=== PATIENT | male | born 1955 | race Caucasian/White ===

== ENCOUNTER 2023-03-02 09:30 | Outpatient (CLI) | payer BC, SELFPAY | END 2023-03-02 09:31 | disposition home or self-care (01) | LOC: NFLDREF 03-03 03:39 | PROVIDERS: PCP Family Medicine; Referring Provider Family Medicine; Visit Provider Family Medicine | DX: G47.00 Insomnia, unspecified (principal); I10 Essential (primary) hypertension; K76.0 Fatty (change of) liver, not elsewhere classified; M62.81 Muscle weakness (generalized); E66.01 Morbid (severe) obesity due to excess calories | CPT/HCPCS: 80053; 80061; 82043; 82570 ==

== ENCOUNTER 2023-08-29 11:20 | Outpatient (CLI) | payer BC, SELFPAY | END 2023-08-29 11:21 | disposition home or self-care (01) | PROVIDERS: PCP Family Medicine; Visit Provider Family Medicine | DX: I10 Essential (primary) hypertension (principal); Z13.6 Encounter for screening for cardiovascular disorders; Z12.5 Encounter for screening for malignant neoplasm of prostate | CPT/HCPCS: 80053; 80061; 82043; 82570; 84153 ==

== ENCOUNTER 2024-07-07 10:47 | Outpatient (CLI) | payer MEDICARE, SELFPAY | END 2024-07-07 10:48 | disposition home or self-care (01) | LOC: NFLDREF 07-08 09:50 | PROVIDERS: PCP Physician Assistant Medical; Referring Provider Physician Assistant Medical; Visit Provider Physician Assistant Medical | DX: N40.0 Benign prostatic hyperplasia without lower urinary tract symptoms (principal); I10 Essential (primary) hypertension; K76.0 Fatty (change of) liver, not elsewhere classified; Z12.5 Encounter for screening for malignant neoplasm of prostate; Z13.29 Encounter for screening for other suspected endocrine disorder | CPT/HCPCS: 80053; 80061; 84443; G0103 ==

== ENCOUNTER 2024-10-01 09:42 | Outpatient (CLI) | payer MEDICARE, OTHER, SELFPAY ==
--- OUTSIDE RECORDS SUMMARY | 2024-10-01 09:47 | XMS_ITS | Clinical Summary ---
Author Organization [facility] Address [address] [place] [address] Care Team Providers Care Dispensing Audiologist Name Role Phone Praveena Shin MD Unavailable David Galicia MD Unavailable Allergies Active Allergy Reactions Criticality Noted Date Comments Amoxicillin 10/07/2020 Naproxen 04/06/2004 hives from large dose Medications omeprazole 20 MG tabletIndication s:Gastroesophage al reflux disease without esophagitis Take 1 tablet (20 mg) by mouth daily Take 30-60 minutes before a meal. 90 tablet 2 6 Active hydrocortisone 2.5 % creamIndications :Rash of groin Apply topically 2 times daily 60 g 3 2 Active traZODone (DESYREL) 100 MG tabletIndication s:Sleep disorder Take 1 tablet (100 mg) by mouth At Bedtime 90 tablet 1 2 Active ketoconazole (NIZORAL) 2 % external cream 1 APPLICATION EXTERNALLY TO GROIN AREAS 1 TIME A DAY 2 Active triamcinolone (KENALOG) 0.025 % cream APPLY TO GROIN AREAS TWICE DAILY FOR 3-10 DAYS THEN NEEDED 2 Active lisinopril (ZESTRIL) 10 MG tabletIndication s:Benign essential hypertension TAKE ONE TABLET BY MOUTH ONE TIME DAILY 90 tablet 3 Active Active Problems Problem Noted Date Diagnosed Date Muscle fatigue 10/04/2022 Muscle cramps 02/07/2022 Overview (10/04/2022): 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 Provider to review and confirm Family history of malignant neoplasm of prostate Overview (02/07/2022): Father at age 60. Anal spasm Overview (06/28/2007): chronic anal leakage; noted per GI via colonsocopy in 2003 Resolved Problems Problem Noted Date Diagnosed Date Resolved Date Cervical radiculopathy 04/25/202109/14 Hip pain, right 02/11/2021 06/20/2021 Esophageal reflux 01/28/2014 11/17/2021 Mild major depression 09/11/20112021 Low back pain 09/24/2010 10/17/2010 Overview (09/20/2015): Diagnosis updated by automated process. Provider to review and confirm. CARDIOVASCULAR SCREENING; LD L GOAL LESS THAN 160 09/18/2010 11/17/2021 Malaise and fatigue 06/28/2007 02/08/20 22 Overview (08/19/2015): Problem list name updated by automated process. 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 02/07/2022 Family history of malignant neoplasm of gastrointestinal tract 02/07/2022 Encounters Date Type Department Care Team Description 07/08/2024 MyC Medical Advice [address] [address] Jaqueline Aguilar CMA Outreach (Visit due ) 07/07/2024 Medical Correspondence [facility] [address] [place] [address] Scan, Non-Provider from Last 3 Months Immunizations Name Administration Dates Next Due COVID-19 MONOVALENT 12+ (Pfizer) 03/11/2021,04/0 12/2020 Influenza (IIV3) PF 08/26/2013, 2,09/11/2011, 009 Influenza Vaccine (Flucelvax Quadrivalent) 08/25/2021 Influenza Vaccine 18-64 (Flublok) 08/19/2020,,09/11/2018 Influenza Vaccine >6 months,quad, PF 08/24/2016, 09/08/2015 Influenza,INJ,MDCK,PF,Quad >6mo(Flucelvax) 08/09/2022 Pneumo Conj 13-V (2010&after) 09/05/2019 TDAP Vaccine (Adacel) 03/01/2018,06/28/2007 Family History Medical History Relation Comments C.A.D. Father A-fib Hypertension Father Prostate Cancer Father Cancer - colorectal Paternal Grandmother Colon Cancer Paternal Grandmother Diabetes No family hx of Hypertension No family hx of Relation Status Comments Brother 1 Alive x3 Brother 2 Alive Brother 3 Daughter 1 Alive Julia Daughter 2 Alive Step---Estefania Daughter 3 Alive Step---Valarie Daughter 4 Alive step---Tesha Father Alive Maternal Grandfather Maternal Grandmother Mother Paternal Grandfather Paternal Grandmother Sister Alive x1 Social History Tobacco Use Types Packs/Day Years Used Date Smoking Tobacco: Former Cigarettes Q uit: 04/19/2015 Smokeless Tobacco: Never Tobacco Cessation:Counseling Given: No Comments:hx of vape cigarette use Alcohol Use Standard Drinks/Week Comments Yes 0 (1 standard drink = 0.6 oz pur e alcohol) rarely,socially Social Connection and Isolation Panel [NHANES] A nswer Date Recorded In a typical week, how many times do you talk on the phone with family, friends, or neighbors? Three times a week 02/06/2022 How often do you get togethe r with friends or relatives? Three times a week 02/06/2022 How often do you attend chur ch or anabaptism services? Never 02/06/2022 Do you belong to any clubs o r organizations such as jew groups, unions, fraternal or athletic groups, or school groups? No 02/06/2022 Attends Club or Organization Meetings Not on javier e 02/06/2022 Are you , , di vorced, , never , or living with a partner? 02/06/2022 AUDIT-C Answer Date Recorded Q1: How often do you have a drink containing alc ohol? 2-4 times a month 02/06/2022 Q2: How many drinks containi ng alcohol do you have on a typical day when you are drinking? 1 or 2 02/06/2022 Q3: How often do you have si x or more drinks on one occasion? Never 02/06/2022 Overall Financial Resource Strain (CARDIA) Answe r Date Recorded How hard is it for you to pa y for the very basics like food, housing, medical care, and heating? Not hard at all 02/06/2022 PHQ-2 Answer Date Recorded PHQ-2 Score 0 12/14/2022 [facility] - Occupational Stress Questionnaire Answer Date Recorded Do you feel stress - tense, restless, nervous, or anxious, or unable to sleep at night because your mind is troubled all the time - these days? To some extent 02/06/2022 Exercise Vital Sign Answer Date Recorde d On average, how many days pe r week do you engage in moderate to strenuous exercise (like a brisk walk)? 2 days 02/06/2022 On average, how many minutes do you engage in exercise at this level? 30 min 02/06/2022 Hunger Vital Sign Answer Date Recorded Within the past 12 months, y ou worried that your food would run out before you got the money to buy more. Never true 02/07/20 22 Within the past 12 months, t he food you bought just didn't last and you didn't have money to get more. Never true 02/06/2022 PRAPARE - Transportation Answer Date Re corded In the past 12 months, has l ack of transportation kept you from medical appointments or from getting medications? No 01/18 In the past 12 months, has l ack of transportation kept you from meetings, work, or from getting things needed for daily living? No 02/06/2022 Housing Stability Vital Sign Answer Abdirahman e Recorded In the last 12 months, was t here a time when you were not able to pay the mortgage or rent on time? Patient refused 02/07/20 22 In the last 12 months, how many places have you lived? 2 02/06/2022 In the last 12 months, was t here a time when you did not have a steady place to sleep or slept in a mcc (including now)? No 02/06/2022 Adolescent Education Answer Date Record ed Getting School Help Needed Not on file 08/19 Education Answer Date Recorded What is the highest level of school you have completed or the highest degree you have received? 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 Not on file Not on file Last Filed Vital Signs Vital Sign Reading Time Taken Comments Blood Pressure 128/82 12/14/2022 4:40 PM NUCLEAR WEAP[employer] MECHANICAL SPECIALIST Pulse 86 12/14/2022 4:40 PM NUCLEAR WE[employer] MECHANICAL SPECIALIST Temperature 36.1 ??C (96.9 ??F) 12/14/2022 4:40 PM CS T Respiratory Rate 16 12/14/2022 4:40 PM NUCLEAR WEAP[employer] MECHANICAL SPECIALIST Oxygen Saturation 99% 12/14/2022 4:40 PM NUCLEAR WEAP[employer] MECHANICAL SPECIALIST Inhaled Oxygen Concentration - - Weight 98.4 kg (217 lb) 12/14/2022 4:40 PM NUCLEAR WEAP[employer] MECHANICAL SPECIALIST Height 180.3 cm (5' 11) 10/04/2022 12:55 PM NUCLEAR WE[employer] MECHANICAL SPECIALIST Body Mass Index 30.27 10/04/2022 12:55 PM NUCLEAR WEAPONS MECHANICAL SPECIALIST Plan of Treatment Health Maintenance Due Date Last Done Comments CT COLONOGRAPHY 1957 FLEX SIG 1957 sDNA (Cologuard) 1957 ZOSTER IMMUNIZATION (1 of 2) 2007 RSV VACCINE (1 - Risk 60-74 years 1-dose series) 2017 FIT 04/27/2018 04/27/2017 Pneumococcal Vaccine: 65+ Years (2 of 2 - PPSV23 or PCV20) 10/31/2019 09/05/2019 ANNUAL REVIEW OF HM ORDERS 02/07/2023 02/07/2022 HEPATIC PANEL 02/07/2023 02/07/2022, 06/0 12/2020, 01/10/2021, Additional history exists MEDICARE ANNUAL WELLNESS VISIT 02/07/2023 02/07/2022, 01/10/2021, 09/05/2019, Additional history exists PSA 02/07/2023 02/07/2022, 08/11/2019, 09/05/2019, Additional history exists ADVANCE CARE PLANNING 03/01/2023 03/01/2018 (Decline d) BMP 11/16/2023 11/16/2022, 09/19, 01/10/2021, Additional history exists PHQ-2 (once per calendar year) 2023 12/14/2022, 12/14/2022, 12/14/2022, Additional history exists FALL RISK ASSESSMENT 01/01/2024 01/01/2023, 02/10/20 21 COVID-19 Vaccine ( season) 2024 09/14/2023, 08/09/2022, 03/22/2022, Additional history exists INFLUENZA VACCINE (#1) 2024 , 08/09/2022, 08/25/2021, Additional history exists GLUCOSE 07/07/2027 07/07/2024, 10/20, 10/04/2022, Additional history exists DTAP/TDAP/TD IMMUNIZATION (3 - Td or Tdap) 03/01/2028 03/01/2018, 06/28/2007 COLONOSCOPY 10/15/2028 10/15/2023, 09/20, 01/25/2016, Additional history exists COLORECTAL CANCER SCREENING 10/15/2028 LIPID 07/07/2029 07/07/2024, 06/0 12/2020, 01/10/2021, Additional history exists HEPATITIS C SCREENING Completed 10/05/2014 LUNG CANCER SCREENING Discontinued 03/01/2023, 014 HPV IMMUNIZATION Aged Out No longer e ligible based on patient's age to complete this topic MENINGITIS IMMUNIZATION Aged Out No l onger eligible based on patient's age to complete this topic RSV MONOCLONAL ANTIBODY Aged Out No l onger eligible based on patient's age to complete this topic Procedures Procedure Name Priority Date/Time Associated Diagnosis Comments POTASSIUM (EXTERNAL RESULT) Routine 07/07/2024 10:47 AM CDT CREATININE (EXTERNAL RESULT) Routine 07/07/2024 10:47 AM CDT GLUCOSE (EXTERNAL RESULT) Routine 07/07/2024 10:47 AM CDT AST (EXTERNAL RESULT) Routine 07/07/2024 10:47 AM CDT ALT (EXTERNAL RESULT) Routine 07/07/2024 10:47 AM CDT LIPID PANEL (EXTERNAL RESULT) Routine 07/07/2024 10:47 AM CDT LAB RESULT - HIM SCAN 07/07/2024 12:[address] CHEST W/O CONTRAST Routine 03/01/2023 7:52 AM CDT Chronic cough Personal history of COVID-19 BASIC METABOLIC PANEL Routine 11/16/2022 11:17 AM NUCLEAR WEAPONS MECHANICAL SPECIALIST Benign essential hypertension PROSTATE SPECIFIC ANTIGEN SCREEN Routine 02/07/2022 8:21 AM CDT Routine general medical examination at [facility] HEPATIC FUNCTION PANEL Routine 02/07/2022 8:21 AM CDT Liver fibrosis COLONOSCOPY - HIM SCAN 10/15/2018 12:00 AM NUCLEAR WEAP[employer] MECHANICAL SPECIALIST FECAL COLORECTAL CANCER SCREEN FIT Routine 04/27/2017 7:00 AM CDT Dyspepsia HEPATITIS C ANTIBODY Routine 10/05/2014 11:25 AM NUCLEAR WEAP[employer] MECHANICAL SPECIALIST Myalgia And Myositis, Unspecified from Last 3 Months or Most Recently Relevant to Health Maintenance Results * Potassium (External Result) (07/07/2024 10:47 AM CDT) Potassium (External) 4.5 3.6 - 5.1 mmol/L [facility] Blood 07/07/2024 10:4 7 AM CDT [facility] - 07/07/2024 10:47 AM CDT [facility] - External Lab Results us Provider Outside LAB - HIM EXTERNAL RESULT Final Result [facility] [address] [phone] * (ABNORMAL) Lipid Panel (External Result) (07/07/2024 10:47 AM CDT) Cholesterol (External) 175 90 - 199 mg/dL [facility] Triglycerides (External) 221(A) 40 - 149 mg/dL [facility] HDL Cholesterol (External) 36 >=40 mg/dL [facility] LDL Cholesterol Calculated (External) 95 <100 mg/dL [facility] Blood 07/07/2024 10:4 7 AM CDT [facility] - 07/07/2024 10:47 AM CDT [facility] - External Lab Results us Provider Outside LAB - HIM EXTERNAL RESULT Final Result Performing Organization Address City/[facility]/ZIP Co de Phone Number [facility] [address] [place] [address], [facility] [phone] * (ABNORMAL) Glucose (External Result) (07/07/2024 10:47 AM CDT) Glucose (External) 105(A) 60 - 115 mg/dL [facility] Blood 07/07/2024 10:4 7 AM CDT [facility] - 07/07/2024 10:47 AM CDT [facility] - External Lab Results us Provider Outside LAB - HIM EXTERNAL RESULT Final Result Performing Organization Address [facility]/ZIP Co de Phone Number [facility] [address] [place], [place] [address] [phone] * Creatinine (External Result) (07/07/2024 10:47 AM CDT) Creatinine (External) 1.1 0.5 - 1.5 mg/dL [facility] Blood 07/07/2024 10:4 7 AM CDT [facility] - 07/07/2024 10:47 AM CDT [facility] - External Lab Results us Provider Outside LAB - HIM EXTERNAL RESULT Final Result Performing Organization Address [facility] Co de Phone Number [facility] [address] [place], [place] [id number] [place] [address] * (ABNORMAL) AST (External Result) (07/07/2024 10:47 AM CDT) AST (External) 54(A) 12 - 35 U/L [facility] Blood 07/07/2024 10:4 7 AM CDT [facility] - 07/07/2024 10:47 AM CDT [facility] - External Lab Results us Provider Outside LAB - HIM EXTERNAL RESULT Final Result Performing Organization Address [facility] Co de Phone Number [facility] [address] [place], [place] [address] [phone] * (ABNORMAL) ALT (External Result) (07/07/2024 10:47 AM CDT) ALT (External) 52(A) 4 - 50 U/L [facility] Blood 07/07/2024 10:4 7 AM CDT [facility] - 07/07/2024 10:47 AM CDT [facility] - External Lab Results us Provider Outside LAB - HIM EXTERNAL RESULT Final Result Performing Organization Address City/[facility]/ZIP Co de Phone Number [place] [phone], [facility] [phone] * Lab Result - HIM Scan (07/07/2024 12:00 AM CDT) 07/07/2024 us Provider Outside NON-BEAKER LAB TESTING Final Result * CT Chest w/o Contrast (03/01/2023 7:52 AM CDT) Anatomical Region Laterality Modality Chest, SUBRAD CT BODY, UMP CT CHEST, RAD CT Computed Tomography Impressions 03/01/2023 3:01 PM CDT IMPRESSION: 1. ??No acute abnormality identified. 2. ??Coronary artery calcifications. 3. ??Fatty liver. EV FRAGA MD Narrative 03/01/2023 3:[address] CHEST WITHOUT CONTRAST 03/01/2023 7:52 AM CLINICAL HISTORY: Chronic cough. Personal history of COVID-19. TECHNIQUE: CT chest without IV contrast. Multiplanar reformats were obtained. Dose reduction techniques were used. CONTRAST: None. COMPARISON: Chest x-ray 12/14/2022, CT chest 02/20/2014. FINDINGS: LUNGS AND PLEURA: No effusions. No acute airspace disease identified. Stable small nodule posterior left lower lobe measuring 0.3 cm series 6 image 191. No specific follow-up recommended. Central airways appear clear. MEDIASTINUM/AXILLAE: No lymphadenopathy. No thoracic aortic aneurysm. CORONARY ARTERY CALCIFICATION: Moderate. UPPER ABDOMEN: Fatty liver. Several hepatic cysts. MUSCULOSKELETAL: Mild spine degenerative changes. Procedure Note Ev Fraga MD - 03/01/2023 CT CHEST WITHOUT CONTRAST 03/01/2023 7:52 AM CLINICAL HISTORY: Chronic cough. Personal history of COVID-19. TECHNIQUE: CT chest without IV contrast. Multiplanar reformats were obtained. Dose reduction techniques were used. CONTRAST: None. COMPARISON: Chest x-ray 12/14/2022, CT chest 02/20/2014. FINDINGS: LUNGS AND PLEURA: No effusions. No acute airspace disease identified. Stable small nodule posterior left lower lobe measuring 0.3 cm series 6 image 191. No specific follow-up recommended. Central airways appear clear. MEDIASTINUM/AXILLAE: No lymphadenopathy. No thoracic aortic aneurysm. CORONARY ARTERY CALCIFICATION: Moderate. UPPER ABDOMEN: Fatty liver. Several hepatic cysts. MUSCULOSKELETAL: Mild spine degenerative changes. IMPRESSION: 1. No acute abnormality identified. 2. Coronary artery calcifications. 3. Fatty liver. EV FRAGA MD us Marcio Valles MD IMG CT ORDERABLES Final Resu lt * (ABNORMAL) Basic metabolic panel (Ca, Cl, CO2, Creat, Gluc, K, Na, BUN) (11/16/2022 11:17 AM NUCLEAR WEAPONS MECHANICAL SPECIALIST) Sodium 140 136 - 145 mmol/L 11/16/2022 5:05 PM NUCLEAR WEAPONS MECHANICAL SPECIALIST [facility] Potassium 4.7 3.4 - 5.3 mmol/L 11/16/2022 5:05 PM NUCLEAR WEAP[employer] MECHANICAL SPECIALIST [facility] Chloride 103 98 - 107 mmol/L 11/16/2022 5:05 PM NUCLEAR WEAPONS MECHANICAL SPECIALIST [facility] Carbon Dioxide (CO2) 28 22 - 29 mmol/L 11/16/2022 5:05 PM NUCLEAR WEAP[employer] MECHANICAL SPECIALIST [facility] Anion Gap 9 7 - 15 mmol/L 11/16/2022 5:05 PM NUCLEAR WE[employer]ONS MECHANICAL SPECIALIST [facility] Urea Nitrogen 19.2 8.0 - 23.0 mg/dL 11/16/2022 5:05 PM NUCLEAR WEAPONS MECHANICAL SPECIALIST [facility] Creatinine 1.14 0.67 - 1.17 mg/dL 11/16/2022 5:05 PM NUCLEAR WEAPONS MECHANICAL SPECIALIST [facility] Calcium 9.7 8.8 - 10.2 mg/dL 11/16/2022 5:05 PM NUCLEAR WEAPONS MECHANICAL SPECIALIST [facility] Glucose 111(H) 70 - 99 mg/dL 11/16/2022 5:05 PM NUCLEAR WEAPONS MECHANICAL SPECIALIST [facility] GFR Estimate 72 >60 mL/min/1.7 3m2 11/16/2022 5:05 PM NUCLEAR WEAPONS MECHANICAL SPECIALIST [facility] Comment:Effective October 202020 eGFRcr in adults is calculated using the 2020 CKD-EPI creatinine equation which includes age and gender (Estrella fry al., NEJM, DOI: 10.1056/PNNTdy8052955) Blood STRUCTURE OF RIGHT UPPER LIMB / Unknown Venipuncture / Unknown 11/16/2022 11:17 AM NUCLEAR WEAPONS MECHANICAL SPECIALIST 11/16/2022 11:17 AM NUCLEAR WEAPONS MECHANICAL SPECIALIST us Britany Gomez PA-C LAB - BLOOD ORDERABLES Fin al Result [facility] [address] [facility], [address] [place] [address], [facility] [phone] * PSA, screen (02/07/2022 8:21 AM CDT) Prostate Specific Antigen Screen 1.96 0.00 - 4.00 ug/L 02/07/2022 1:44 PM CDT [facility] Blood STRUCTURE OF LEFT UPPER LIMB / Unknown Venipuncture / Unknown 02/07/2022 8:21 AM CDT 02/07/2022 8:30 AM CDT Praveena Shin MD LAB - BLOOD ORDERABLES Final Res ult [facility] [address] Lab (no room number, 1st floor of clinic) [place] [address], [facility] [phone] * (ABNORMAL) Hepatic panel (Albumin, ALT, AST, Bili, Alk Phos, TP) (02/07/2022 8:21 AM CDT) Bilirubin Total 0.5 0.2 - 1.3 mg/dL 02/07/2022 1:39 PM CDT [facility] Bilirubin Direct 0.1 0.0 - 0.2 mg/dL 02/07/2022 1:39 PM CDT [facility] Protein Total 7.8 6.8 - 8.8 g/dL 02/07/2022 1:39 PM CDT [facility] Albumin 3.8 3.4 - 5.0 g/dL 02/07/2022 1:39 PM CDT [facility] Alkaline Phosphatase 38(L) 40 - 150 U/L 02/07/2022 1:39 PM CDT [facility] AST 51(H) 0 - 45 U/L 02/07/2022 1:39 PM CDT [facility] ALT 84(H) 0 - 70 U/L 02/07/2022 1:39 PM CDT [facility] Blood STRUCTURE OF LEFT UPPER LIMB / Unknown Venipuncture / Unknown 02/07/2022 8:21 AM CDT 02/07/2022 8:30 AM CDT us Praveena Shin MD LAB - BLOOD ORDERABLES Final Res ult [facility] [address] Lab (no room number, 1st floor of clinic) [place] [address], [facility] [phone] * COLONOSCOPY - HIM SCAN (10/15/2018 12:00 AM NUCLEAR WEAPONS MECHANICAL SPECIALIST) 10/15/2018 us Provider Outside PROCEDURES Final Result * Fecal colorectal cancer screen (FIT) (04/27/2017 7:00 AM CDT) Pathologist [facility] Occult Blood Scn FIT Negative NEG [facility] Stool specimen (specimen) 04/27/2017 7:00 AM CDT 04/27/2017 8:14 AM CDT us Praveena Shin MD LAB - STOOLS ORDERABLES Final Re sult [facility] [address] [place] [address] * (ABNORMAL) Hepatitis C antibody (10/05/2014 11:25 AM NUCLEAR WEAPONS MECHANICAL SPECIALIST) Hepatitis C Antibody Nonreactive Assay performance characteristics have not been established for newborns, infants, and children (A) NEG [facility] 10/05/2014 11:2 5 AM NUCLEAR WEAPONS MECHANICAL SPECIALIST 10/05/2014 11:29 AM NUCLEAR WEAPONS MECHANICAL SPECIALIST us Yanick Bello MD LAB - BLOOD ORDERABLES Final Result [facility] [address] [place] [address] from Last 3 Months or Most Recently Relevant to Health Maintenance Care Teams Dispensing Audiologist Relationship Specialty Start [place] [address] [place] [address] Assigned PCP 04/10/24 David Galicia MD [address] [facility] [address] [place], [place] [address] Cardiovascular Disease 05/16/24
--- OUTSIDE RECORDS SUMMARY | 2024-10-01 09:48 | XMS_ITS | Encounter Summary ---
Author Organization [facility] Address [address] [place] [address] Care Team Providers Care Bufferer Name Role Phone Sin Sam PA-C Unavailable Sin Sam PA-C Primary Care Provider Rola Tenorio MD Unavailable [phone] Praveena Shin MD Primary Care Provider Viky Pedraza RN Unavailable Praveena Shin MD Unavailable Sin Sam PA-C Unavailable Elif Yu MD Unavailable Praveena Shin MD Unavailable David Galicia MD Unavailable Encounter Details Date Type Department Care Team (Late st Contact Info) Description 05/03/2022 [facility] [place] [address] [facility] [address] [place] [address] Rola Tenorio MD ORTHOPAEDIC SURGERY [facility] [address] [address] Social History Tobacco Use Types Packs/Day Years Used Date Smoking Tobacco: Former Cigarettes Q uit: 04/19/2015 Smokeless Tobacco: Never Comments:hx of vape cigarett e use Alcohol Use Standard Drinks/Week Comments Not Currently 0 (1 standard drink = 0.6 oz [...] 02/06/2022 How often do you attend [employer] or restorationist services? Never 02/06/2022 Do you belong to any clubs o r organizations such as sikhism groups, unions, fraternal or athletic groups, or [...] PHQ-2 Answer Date Recorded PHQ-2 Score 0 02/07/2022 [facility] of Occupat ional Health - Occupational Stress [...] money to buy more. Never true 02/07/20 Within the past 12 months, t he [...] or rent on time? Patient refused 02/07/20 In the last 12 months, how many places have you lived? 2 02/06/2022 In the last 12 months, was t here a time when you did not have a steady place to sleep or slept in a retirement (including now)? No 02/06/2022 Education Answer Date Recorded What is the highest level of school you have completed or the highest degree you have received? 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 The Radiology team will reach out to you to get this scheduled. - Please continue your home exercises emphasizing gluteus and core strengthening. Also recommend returning to formal physical therapy as well. Please reach out if you need a new referral. - Ok to use NSAIDS (ie Ibuprofen 600 mg with food every 4-6 hours as needed for pain). - Avoid Tylenol (acetaminophen) -- this is contraindicated due to liver fibrosis. - Recommend heat vs ice as needed for comfort. - Activity modifications: Avoid high impact activities and activities that provoke the pain. Please see patient's mychart message and advise if any recommendations. Nevaeh Astudillo MBA, ATC documented in this encounter Plan of Treatment Not on file documented as of this encounter Visit Diagnoses Not on filedocumented in this encounter Additional Health Concerns Infection Onset Date Last Indicated Resolved Time COVID-19 Comment:01/01/2023 Patient tested positive for COVID on 12/31/22 symptom onset 12/30/22 Carrie Agustin, Infection Prevention 12/30/2022 01/01/2023 01/20/2023 11:41 PM MOBILITY ARCHITECT Assessment Noted Time PHQ-9 Depression Total Score: 0 11/18/20 21 7:02 AM MOBILITY ARCHITECT documented as of this encounter Care Teams Bufferer Relationship Specialty Start Date End Date Sin Sam PA-C [address] [place] [address] PCP - General Family Medicine 11/17/21 08/16/22 [place] [address] [place] [address] PCP - General Family Medicine 08/17/22 07/07/24 Sin Sam PA-C [address] [place] [address] Assigned PCP 10/09/21 08/18/22 Rola Tenorio MD ORTHOPAEDIC SURGERY [address] [place] [address] Assigned Musculoskeletal Provider 07/08/22 08/24/23 Viky Pedraza RN Personal Advocate & Liaison (PAL) Nurse 08/18/22 12/21/22 [place] [address] [place] [address] Assigned PCP 08/19/22 08/10/23 Sin Sam PA-C [address] [place] [address] Assigned PCP 08/11/23 09/07/23 Elif Yu MD [address] [facility] [place] [address] Assigned PCP 09/08/23 04/09/24 [place] [address] [place] [address] Assigned PCP 04/10/24 David Galicia MD [address] [facility] [address] [place] [address] Cardiovascular Disease 05/16/24 documented as of this encounter
--- OUTSIDE RECORDS SUMMARY | 2024-10-01 09:48 | XMS_ITS | Encounter Summary ---
Author Organization [facility] Address [address] [place] [address] Care Team Providers Care Salesforce Developer Name Role Phone Yanick Bello MD Primary Care Provider Unavailable Nilo Rios MD Unavailable [phone] Romelia Lemus-C Unavailable Yanick Bello MD Unavailable Sin Villarreal-Sahil Unavailable Romelia Lemus PA-C Unavailable Sin Sam-C Primary Care Provider Rola Tenorio MD Unavailable Praveena Shin MD Primary Care Provider [phone] Viky Pedraza RN Unavailable [phone] Praveena Shin MD Unavailable Sin Sam-C Unavailable Elif Yu MD Unavailable Praveena Shin MD Unavailable David Galicia MD Unavailable [phone] Reason for Visit * Reason Comments Medication Refill Encounter Details Date Type Department Care Team (Late st Contact Info) Description 08/20/[address] [address] Yanick Bello MD Medication Refill Social History Tobacco Use Types Packs/Day Years Used Date Smoking Tobacco: Former Cigarettes Q uit: 04/19/2015 Smokeless Tobacco: Never Comments:hx of vape cigarett e use Alcohol Use Standard Drinks/Week Comments Yes 0 (1 standard drink = 0.6 oz pur e alcohol) rarely,socially Social Connection and Isolation Panel [NHANES] A nswer Date Recorded Frequency of Communication with Friends and Fami ly Twice a week 09/05/2019 Frequency of Social Gatherings with Friends and Family Once a week 09/05/2019 Attends Roman Catholic Services Never 09/05 Active Member of Clubs or Organizations No 09/05/2019 Attends Club or Organization Meetings Never 09/05/2019 Marital Status 09/05/2019 AUDIT-C Answer Date Recorded Q1: How often do you have a drink containing alc ohol? 2-4 times a month 09/05/2019 Q2: How many drinks containi ng alcohol do you have on a typical day when you are drinking? 1 or 2 09/05/2019 Q3: How often do you have si x or more drinks on one occasion? Never 09/05/2019 Overall Financial Resource Strain (CARDIA) Answe r Date Recorded How hard is it for you to pa y for the very basics like food, housing, medical care, and heating? Not hard at all 09/05/2019 PHQ-2 Answer Date Recorded PHQ-2 Score 0 04/19/2021 [facility] of Occupat ional Health - Occupational Stress Questionnaire Answer Date Recorded Feeling of Stress To some extent 09/05/2019 Exercise Vital Sign Answer Date Recorde d Days of Exercise per Week 3 days 2018 Minutes of Exercise per Session 50 min 09/05/2019 Hunger Vital Sign Answer Date Recorded Within the past 12 months, y ou worried that your food would run out before you got the money to buy more. Never true 09/05/20 19 Within the past 12 months, t he food you bought just didn't last and you didn't have money to get more. Never true 09/05/2019 PRAPARE - Transportation Answer Date Re corded In the past 12 months, has l ack of transportation kept you from medical appointments or from getting medications? No 08/19 In the past 12 months, has l ack of transportation kept you from meetings, work, or from getting things needed for daily living? No 09/05/2019 Education Answer Date Recorded What is the highest level of school you have completed or the highest degree you have received? 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 Not on file Not on file documented as of this encounter Plan of Treatment Not on file documented as of this encounter Visit Diagnoses Diagnosis Sleep disorder Sleep disturbance, unspecified documented in this encounter Additional Health Concerns Infection Onset Date Last Indicated Resolved Time COVID-19 Comment:01/01/2023 Patient tested positive for COVID on 12/31/22 symptom onset 12/30/22 Carrie Agustin Infection Prevention 12/30/2022 01/01/2023 01/20/2023 11:41 PM ORTHOPEDIC SHOES SALESPERSON Assessment Noted Time PHQ-9 Depression Total Score: 2 04/20/20 21 7:03 AM CDT documented as of this encounter Care Teams Salesforce Developer Relationship Specialty Start Date End Date Yanick Bello MD PCP - General Family Practice 11/27/11 11/16/21 Sin Sam PA-C [address] [place] [address] PCP - General Family Medicine 11/17/21 08/16/22 [place] [address] [place] [address] PCP - General Family Medicine 08/17/22 07/07/24 Nilo Rios MD [address] [place] [address] Assigned Surgical Provider 10/03/20 04/01/22 Romelia Lemus PA-C [address] [place] [address] Assigned OBGYN Provider 02/02/2110/08 Yanick Bello MD Assigned PCP 07/24/21 10/08/21 Sin Sam PA-C [address] [place] [address] Assigned PCP 10/09/21 08/18/22 Romelia Lemus PA-C [address] [facility] [address] [place] [address] Assigned OBGYN Provider 10/09/21 Rola Tenorio MD ORTHOPAEDIC SURGERY [address] [place] [address] Assigned Musculoskeletal Provider 07/08/22 08/24/23 Viky Pedraza RN Personal Advocate & Liaison (PAL) Nurse 08/18/22 12/21/22 [place] [address] [place] [address] Assigned PCP 08/19/22 08/10/23 Sin Sam PA-C [address] [place] [id number] Assigned PCP 08/11/23 09/07/23 Elif Yu MD [address] [facility] [place] [address] Assigned PCP 09/08/23 04/09/24 [place] [address] [place] [address] Assigned PCP 04/10/24 David Galicia MD [address] [facility] [address] [place] [address] Cardiovascular Disease 05/16/24 documented as of this encounter
--- OUTSIDE RECORDS SUMMARY | 2024-10-01 09:48 | XMS_ITS | Encounter Summary ---
Author Organization [facility] Address [address] [place] [address] Care Team Providers Care Multi Slide Machine Tender Name Role Phone Rola Tenorio MD Unavailable Praveena Shin MD Primary Care Provider Viky Pedraza RN Unavailable [phone] Praveena Shin MD Unavailable Sin Sam PA-C Unavailable Elif Yu MD Unavailable Praveena Shin MD Unavailable David Galicia MD Unavailable [phone] Reason for Visit * Reason Onset Date Comments Patient Request 10/18/2022 Lab tests Encounter Details Date Type Department Care Team (Late st Contact Info) Description 10/18/2022 [facility] Medical Advice [facility] [id number] [place] [phone] Britany Gomez PA-C [address] [place] [address] Patient Request (Lab tests ) Social History Tobacco Use Types Packs/Day Years [...] week 02/06/2022 How often do you attend [facility] or gnosticism services? Never 02/06/2022 Do you belong to any clubs o r organizations such as temple groups, unions, fraternal or athletic groups, or [...] PHQ-2 Answer Date Recorded PHQ-2 Score 0 10/04/2022 [facility] of Occupat ional Health - Occupational Stress [...] place to sleep or slept in a fdc (including now)? No 02/06/2022 Education Answer Date Recorded What is the highest level of school you have completed or the highest degree you have received? 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 No / Unsure 10/04/2022 12:34 PM PLASTICS PROCESS HAND documented as of this encounter Miscellaneous Notes * Telephone Encounter - Viky Pedraza RN - 10/19/2022 7:14 AM PLASTICS PROCESS HAND Britany Gomez, PAC Please review my chart message and advise, requesting other lab orders for muscle pain Viky Pedraza, Registered Nurse, TAMI (Patient Advocate Liason) [facility] [phone] TICS PROCESS HAND * Telephone Encounter - Felecia Garner RN - 10/18/2022 8:49 AM CST Britany Gomez PA-C Patient responded via mychart & informs BP around 135/80 Felecia Doyle RN, BSN, PHN [facility] TICS PROCESS HAND documented in this encounter Plan of Treatment Not on file documented as of this encounter Results * CK total (11/16/2022 11:17 AM PLASTICS PROCESS HAND) CK 170 39 - 308 U/L 11/16/2022 5:05 PM PLASTICS PROCESS HAND [facility] Blood STRUCTURE OF RIGHT UPPER LIMB / Unknown Venipuncture / Unknown 11/16/2022 11:17 AM PLASTICS PROCESS HAND 11/16/2022 11:17 AM PLASTICS PROCESS HAND us Britany Gomez PA-C LAB - BLOOD ORDERABLES Fin al Result [facility] [address] [facility], [address] [address], [facility] [phone] * (ABNORMAL) Basic metabolic panel (Ca, Cl, CO2, Creat, Gluc, K, Na, BUN) (11/16/2022 11:17 AM PLASTICS PROCESS HAND) Sodium 140 136 - 145 mmol/L 11/16/2022 5:05 PM PLASTICS PROCESS HAND [facility] Potassium 4.7 3.4 - 5.3 mmol/L 11/16/2022 5:05 PM PLASTICS PROCESS HAND [facility] Chloride 103 98 - 107 mmol/L 11/16/2022 5:05 PM PLASTICS PROCESS HAND [facility] Carbon Dioxide (CO2) 28 22 - 29 mmol/L 11/16/2022 5:05 PM PLASTICS PROCESS HAND [facility] Anion Gap 9 7 - 15 mmol/L 11/16/2022 5:05 PM PLASTICS PROCESS HAND [facility] Urea Nitrogen 19.2 8.0 - 23.0 mg/dL 11/16/2022 5:05 PM PLASTICS PROCESS HAND [facility] Creatinine 1.14 0.67 - 1.17 mg/dL 11/16/2022 5:05 PM PLASTICS PROCESS HAND [facility] Calcium 9.7 8.8 - 10.2 mg/dL 11/16/2022 5:05 PM PLASTICS PROCESS HAND [facility] Glucose 111(H) 70 - 99 mg/dL 11/16/2022 5:05 PM PLASTICS PROCESS HAND [facility] GFR Estimate 72 >60 mL/min/1.7 3m2 11/16/2022 5:05 PM PLASTICS PROCESS HAND [facility] Comment:Effective October 202020 eGFRcr in adults is calculated using the 2020 CKD-EPI creatinine equation which includes age and gender (Estrella et al., NEJM, DOI: 10.1056/TFEMaw5283915) Blood STRUCTURE OF RIGHT UPPER LIMB / Unknown Venipuncture / Unknown 11/16/2022 11:17 AM PLASTICS PROCESS HAND 11/16/2022 11:17 AM PLASTICS PROCESS HAND us Britany Gomez PA-C LAB - BLOOD ORDERABLES Fin al Result [facility] [address] [facility], [address] [place] [address], [facility] [phone] documented in this encounter Visit Diagnoses Diagnosis Benign essential hypertension- Primary Essential hypertension, benign Muscle cramping Muscle fatigue Other musculoskeletal symptoms referable to limbs documented in this encounter Additional Health Concerns Infection Onset Date Last Indicated Resolved Time COVID-19 Comment:01/01/2023 Patient tested positive for COVID on 12/31/22 symptom onset 12/30/22 Carrie Agustin Infection Prevention 12/30/2022 01/01/2023 01/20/2023 11:41 PM PLASTICS PROCESS HAND Assessment Noted Time PHQ-9 Depression Total Score: 6 10/04/20 22 12:50 PM PLASTICS PROCESS HAND documented as of this encounter Care Teams Multi Slide Machine Tender Relationship Specialty [place] [address] [place] [address] PCP - General Family Medicine 08/17/22 07/07/24 Rola Tenorio MD ORTHOPAEDIC SURGERY [facility] [address] [address] Assigned Musculoskeletal Provider 07/08/22 08/24/23 Viky Pedraza RN Personal Advocate & Liaison (PAL) Nurse 08/18/22 12/21/22 [place] [address] [place], [place] [id number] Assigned PCP 08/19/22 08/10/23 Sin Sam PA-C [address] [place] [id number] Assigned PCP 08/11/23 09/07/23 Elif Yu MD [address] [place] [address] Assigned PCP 09/08/23 04/09/24 [place] [address] [place] [address] Assigned PCP 04/10/24 David Galicia MD [address] [facility] [address] [place] [address] Cardiovascular Disease 05/16/24 documented as of this encounter
--- OUTSIDE RECORDS SUMMARY | 2024-10-01 09:48 | XMS_ITS | Encounter Summary ---
Author Organization [facility] Address [address] [place] [address] Care Team Providers Care Truck Mechanic Name Role Phone Rola Tenorio MD Unavailable Praveena Shin MD Primary Care Provider Viky Pedraza RN Unavailable [phone] Praveena Shin MD Unavailable Sin Sam PA-C Unavailable [phone] Elif Yu MD Unavailable Praveena Shin MD Unavailable David Galicia MD Unavailable Reason for Visit * Reason Onset Date Comments Referral 10/04/2022 Encounter Details Date Type Department Care Team (Late st Contact Info) Description 10/04/2022 Telephone [facility] [address] 3rd [place] [address] Guerrero Batlazar MD [address] [place] [id number] [place] [address] Referral Social History Tobacco Use Types Packs/Day Years [...] week 02/06/2022 How often do you attend [facility] or spiritism services? Never 02/06/2022 Do you belong to any clubs o r organizations such as anglican groups, unions, fraternal or athletic groups, or [...] Answer Date Recorded PHQ-2 Score 0 10/04/2022 [facility] of Occupat ional Health - Occupational [...] place to sleep or slept in a fci (including now)? No 02/06/2022 Education Answer Date Recorded What is the highest level of school you have completed or the highest degree you have received? Bachelor's degree (e.g., BA, AB, BS) 09/05/2019 Sex and Gender Information Value Date Recorded Sex Assigned at Male 08/30/2020 11:01 AM CDT Legal Sex Male 4:20 AM FINANCIAL ADVISOR TRAINEE Gender Identity Male 08/30/2020 11:01 AM CDT [...] Coronavirus/COVID-19? No / Unsure 10/04/2022 12:34 PM FINANCIAL ADVISOR TRAINEE documented as of this encounter Miscellaneous Notes * Telephone Encounter - KangJeanette - 10/04/2022 3:10 PM CST [facility] Phone Message May a detailed message be left on voicemail: yes Reason for Call: Appointment Intake Referring Provider Name: Britany Gomez PA-C Diagnosis and/or Symptoms: Muscle cramping Muscle cramps Dr. 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 Dx is not listed in our protocols. Value Analysis Coordinator is unsure if patient can be scheduled as a new patient with Dr. Baltazar or if he should be scheduled in general neurology. Please review and contact the patient to discuss scheduling options. Action Taken: Message routed to: Other: [facility] Travel Screening: Not Applicable NCIAL ADVISOR TRAINEE documented in this encounter Plan of Treatment Not on file documented as of this encounter Visit Diagnoses Not on filedocumented in this encounter Additional Health Concerns Infection Onset Date Last Indicated Resolved Time COVID-19 Comment:01/01/2023 Patient tested positive for COVID on 12/31/22 symptom onset 12/30/22 Carrie Agustin, Infection Prevention 12/30/2022 01/01/2023 01/20/2023 11:41 PM FINANCIAL ADVISOR TRAINEE Assessment Noted Time PHQ-9 Depression Total Score: 6 10/04/20 22 12:50 PM FINANCIAL ADVISOR TRAINEE documented as of this encounter Care Teams Truck Mechanic Relationship Specialty Start [place] [address] [place] [address] PCP - General Family Medicine 08/17/22 07/07/24 Rola Tenorio MD ORTHOPAEDIC SURGERY [address] [place] [address] Assigned Musculoskeletal Provider 07/08/22 08/24/23 Viky Pedraza RN Personal Advocate & Liaison (PAL) Nurse 08/18/22 12/21/22 [place] [address] [place] [address] Assigned PCP 08/19/22 08/10/23 Sin Sam PA-C [address] [place] [address], [place] [address] Assigned PCP 08/11/23 09/07/23 Elif Yu MD [address] [facility] [place] [address] Assigned PCP 09/08/23 04/09/24 [place] [address] [place] [address] Assigned PCP 04/10/24 David Galicia MD [address] [facility] [address] [place] [address] Cardiovascular Disease 05/16/24 documented as of this encounter
--- OUTSIDE RECORDS SUMMARY | 2024-10-01 09:48 | XMS_ITS | Encounter Summary ---
Author Organization [facility] Address [address] [place] [address] Care Team Providers Care Vfx Artist Name Role Phone Rola Tenorio MD Unavailable Praveena Shin MD Primary Care Provider Praveena Shin MD Unavailable Sin Sam PA-C Unavailable Elif Yu MD Unavailable Praveena Shin MD Unavailable David Galicia MD Unavailable Reason for Visit * Reason Onset Date Comments MyChart Communication 03/07/2023 Encounter Details Date Type Department Care Team (Late st Contact Info) Description 03/07/2023 MyC Medical Advice [address] [place] [address] Heri Kilgore APRN [facility] [address] [place] [address] MyChart Communication Social History Tobacco Use Types Packs/Day Years [...] 02/06/2022 How often do you attend chur or druze services? Never 02/06/2022 Do you belong to any clubs o r organizations such as catholic groups, unions, fraternal or athletic groups, or [...] Answer Date Recorded PHQ-2 Score 0 12/14/2022 [facility] Occupational Stress Questionnaire Answer Date [...] place to sleep or slept in a care home (including now)? No 02/06/2022 Education Answer Date Recorded What is the highest level of school you have completed or the highest degree you have received? Bachelor's degree (e.g., BA, AB, BS) 09/05/2019 Sex and Gender Information Value Date Recorded Sex Assigned at Male 08/30/2020 11:01 AM CDT Legal Sex Male 4:20 AM ESTATE PLANNER Gender Identity Male 08/30/2020 11:01 AM CDT [...] suspected to have Coronavirus/COVID-19? No / Unsure 03/01/2023 7:09 AM CDT documented as of this encounter Miscellaneous Notes * Telephone Encounter - Velma Frye RN - 03/13/2023 10:40 AM CDT Mychart message sent to patient/caregiver with provider recommendations. Velma Frye RN [facility] * Telephone Encounter - Heri Kilgore NP - 03/12/2023 12:50 PM CDT We can consider stopping Lisinopril although from what I recall the cough started prior to startinglisinopril. Could we have a release of information from the public health dietitian? Sometimes they may give other ideas of what could be causing symptoms. * Telephone Encounter - Stormy Engle RN - 03/08/2023 9:38 AM CDT Please see patient's [employer] message below. Went to pulmonology for his cough. CT scan done 03/01/23. Next step? Last office visit 12/14/22 Please advise, thanks. documented in this encounter Plan of Treatment Not on file documented as of this encounter Visit Diagnoses Not on filedocumented in this encounter Additional Health Concerns Assessment Noted Time PHQ-9 Depression Total Score: 3 12/14/19 4:46 PM ESTATE PLANNER documented as of this encounter Care Teams Vfx Artist Relationship Specialty [place] [address] [place] [address] PCP - General Family Medicine 08/17/22 07/07/24 Rola Tenorio MD ORTHOPAEDIC SURGERY [address] [place] [address] Assigned Musculoskeletal Provider 07/08/22 08/24/23 [place] [address] [place] [address] Assigned PCP 08/19/22 08/10/23 Sin Sam PA-C [address] [place] [address] Assigned PCP 08/11/23 09/07/23 Elif Yu MD [address] [facility] [place] [address] Assigned PCP 09/08/23 04/09/24 [place] [address] [place] [address] Assigned PCP 04/10/24 David Galicia MD [address] [facility] [address] [place] [address] Cardiovascular Disease 05/16/24 documented as of this encounter
--- OUTSIDE RECORDS SUMMARY | 2024-10-01 09:48 | XMS_ITS | Encounter Summary ---
Author Organization [facility] Address [address] [place] [address]. [place] [address] Care Team Providers Care Forging Die Finisher Name Role Phone Praveena Shin MD Primary Care Provider [phone] Praveena Shin MD Unavailable David Galicia MD Unavailable [phone] Encounter Details Date Type Department Care Team (Late st Contact Info) Description 07/07/2024 Medical Correspondence [facility] [address] [place] [address] Scan, Non-Provider Social History Tobacco Use Types Packs/Day Years [...] often do you attend chur ch or hindu services? Never 02/06/2022 Do you belong to any clubs o r organizations such as hinduism groups, unions, fraternal or athletic groups, or [...] Answer Date Recorded PHQ-2 Score 0 12/14/2022 [facility]at ional Health [...] mortgage or rent on time? Patient refused 03/21/20 22 In the last 12 months, how many places have you lived? 2 02/06/2022 In the last 12 months, was t here a time when you did not have a steady place to sleep or slept in a fci (including now)? 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
--- OUTSIDE RECORDS SUMMARY | 2024-10-01 09:48 | XMS_ITS | Encounter Summary ---
Author Organization [facility] Address [address] [place] [address] Care Team Providers Care Resource Specialist Name Role Phone Yanick Bello MD Primary Care Provider Unavailable Yanick Bello MD Unavailable UnaRick Ariza MD Unavailable Heri Aguilar DPM Unavailable [phone] Nilo Rios MD Unavailable [phone] Olivier Haynes RN Unavailable Unavailable Romelia Lemus-Sahil Unavailable [phone] Sin Sam-C Unavailable +[phone] Mendy Weaver RN Unavailable Unavailable Yanick Bello MD Unavailable UnaSin Guerrero-C Unavailable +[phone] Yanick Bello MD Unavailable UnaSin Guerrero-C Unavailable +[phone] Romelia Lemus-Sahil Unavailable [phone] Sin Sam PA-C Primary Care Provider Rola Tenorio MD Unavailable Praveena Shin MD Primary Care Provider [phone] Viky Pedraza RN Unavailable [phone] Praveena Shin MD Unavailable Sin Sam PA-C Unavailable Elif Yu MD Unavailable Praveena Shin MD Unavailable David Galicia MD Unavailable [phone] Reason for Visit * Reason Comments Medication Refill Encounter Details Date Type Department Care Team (Late st Contact Info) Description 11/17/[address] [address] Yanick Bello MD Medication Refill [...] and Family Once a week 09/05/2019 Attends [employer] Day Services Never 09/05 Active Member of Clubs [...] PHQ-2 Answer Date Recorded PHQ-2 Score 0 09/05/2019 [facility] [place] of Occupat ional Health - Occupational Stress [...] AM CDT Legal Sex Male 4:20 AM ANTI AIR WARFARE OPERATIONS OFFICER Gender Identity Male 08/30/2020 11:01 AM CDT Sexual Orientation Straight 08/30/2020 11 :01 AM CDT 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 Not on file Not on file documented as of this encounter Miscellaneous Notes * Telephone Encounter - Sheri Lux RN - 11/17/2020 2:58 PM ANTI AIR WARFARE OPERATIONS OFFICER Routing refill request to provider for review/approval because: Drug not on the G refill protocol Sheri Lux RN [facility] -- Triage Nurse AIR WARFARE OPERATIONS OFFICER documented in this encounter Plan of Treatment Not on file documented as of this encounter Visit Diagnoses Diagnosis Sleep disorder Sleep disturbance, unspecified documented in this encounter Additional Health Concerns Infection Onset Date Last Indicated Resolved Time COVID-19 Comment:01/01/2023 Patient tested positive for COVID on 12/31/22 symptom onset 12/30/22 Carrie Agustin, Infection Prevention 12/30/2022 01/01/2023 01/20/2023 11:41 PM ANTI AIR WARFARE OPERATIONS OFFICER Assessment Noted Time PHQ-9 Depression Total Score: 6 07/20/20 7:11 AM CDT documented as of this encounter Care Teams Resource Specialist Relationship Specialty Start Date End Date Yanick Bello MD PCP - General Family Practice 11/27/11 11/16/21 Sin Sam PA-C [address] [place] [address] PCP - General Family Medicine 11/17/21 08/16/22 [place] [address] [place] [address] PCP - General Family Medicine 08/17/22 07/07/24 Yanick Bello MD Assigned PCP 02/15/20 02/09/21 Rick Yañez MD [address] [place] [address] Assigned Sleep Provider 09/10/20 Heri Aguilar DPM [address] [facility] [address] [place], [place] [address] Assigned Musculoskeletal Provider 09/10/20 02/01/21 Nilo Rios MD [address] [place] [phone] Assigned Surgical Provider 10/03/20 04/01/22 Olivier Haynes, [facility] Personal Advocate & Liaison (PAL) Family Practice 10/21/20 03/18/21 Romelia Lemus PA-C [address] [place] [address] Assigned OBGYN Provider 02/02/2110/08 Sin Sam PA-C [address] [place] [address] Assigned PCP 02/10/21 04/23/21 Mendy Weaver RN Personal Advocate & Liaison (PAL) Family Medicine 03/17/21 04/14/21 Yanick Bello MD Assigned PCP 04/24/21 05/14/21 Sin Sam PA-C [address] [place] [address] Assigned PCP 05/15/21 07/23/21 Yanick Bello MD Assigned PCP 07/24/21 10/08/21 Sin Sam PA-C [address] [place] [address] Assigned PCP 10/09/21 08/18/22 Romelia Lemus PA-C [address] [facility] [address] [place] [address] Assigned OBGYN Provider 10/09/21 Rola Tenorio MD ORTHOPAEDIC SURGERY [address] [place] [address] 072024 Assigned Musculoskeletal Provider 07/08/22 08/24/23 Viky Pedraza RN Personal Advocate & Liaison (PAL) Nurse 08/18/22 12/21/22 [place] [address] [place] [address] Assigned PCP 08/19/22 08/10/23 Sin Sam PA-C [address] [place] [address] Assigned PCP 08/11/23 09/07/23 Elif Yu MD [address] [facility] [place] [address] Assigned PCP 09/08/23 04/09/24 [place] [address] [place] [address] Assigned PCP 04/10/24 David Galicia MD [address] [place] [address] Cardiovascular Disease 05/16/24 documented as of this encounter
--- OUTSIDE RECORDS SUMMARY | 2024-10-01 09:48 | XMS_ITS | Encounter Summary ---
Author Organization [facility] Address [address] [place] [address] Care Team Providers Care Paleontological Helper Name Role Phone Yanick Bello MD Primary Care Provider Unavailable Yanick Bello MD Unavailable UnaHeri Rivera DPM Unavailable [phone] Nilo Rios MD Unavailable [phone] Olivier Haynes RN Unavailable Unavailable Romelia Lemus PA-C Unavailable [phone] Sin Sam-C Unavailable +[phone] Mendy Weaver RN Unavailable Unavailable Yanick Bello MD Unavailable UnaSin Guerrero-C Unavailable + Yanick Bello MD Unavailable Unavai labSin Ennis-C Unavailable +[phone] Romelia Lemus PA-C Unavailable [phone] Sin Sam-C Primary Care Provider Rola Tenorio MD Unavailable [phone] Praveena Shin MD Primary Care Provider Viky Pedraza RN Unavailable [phone] Praveena Shin MD Unavailable Sin Sam PA-C Unavailable [phone] Elif Yu MD Unavailable Praveena Shin MD Unavailable David Galicia MD Unavailable [phone] Encounter Details Date Type Department Care Team (Late st Contact Info) Description 12/14/2020 MyC Medical Advice [address] [address] Olivier Haynes, RN Social History Tobacco Use Types Packs/Day Years [...] and Family Once a week 09/05/2019 Attends [employer] Services Never 09/05 Active Member of Clubs [...] Answer Date Recorded PHQ-2 Score 0 09/05/2019 [facility] of Occupat ional Health - Occupational Stress [...] AM CDT 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 Gender Identity Male 08/30/2020 11:01 AM CDT [...] Infection Prevention 12/30/2022 01/01/2023 01/20/2023 11:41 PM HIGH SCHOOL MUSIC TEACHER Assessment Noted Time PHQ-9 Depression Total Score: 6 07/20/20 20 7:11 AM CDT documented as of this encounter Care Teams Paleontological Helper Relationship Specialty Start Date End Date Yanick Bello MD PCP - General Family Practice 11/27/11 11/16/21 Sin Sam PA-C [address] [place] [address] PCP - General Family Medicine 11/17/21 08/16/22 [place] [address] [place] [address] PCP - General Family Medicine 08/17/22 07/07/24 Yanick Bello MD Assigned PCP 02/15/20 02/09/21 Heri Aguilar DPM [address] [facility] [address] [place] [address] Assigned Musculoskeletal Provider 09/10/20 02/01/21 Nilo Rios MD [address] [place] [phone] Assigned Surgical Provider 10/03/20 04/01/22 Olivier Haynes RN Personal Advocate & Liaison (PAL) Family Practice 10/21/20 03/18/21 Romelia Lemus PA-C [address] [place] [address] Assigned OBGYN Provider 02/02/2110/08 Sin Sam PA-C [address] [place] [address] Assigned PCP 02/10/21 04/23/21 Mendy Weaver RN Personal Advocate & Liaison (PAL) Family Medicine 03/17/21 04/14/21 Yanick Bello MD Assigned PCP 04/24/21 05/14/21 Sin Sam PA-C [address] [place] [address] Assigned PCP 05/15/21 07/23/21 Yanick Bello MD Assigned PCP 07/24/21 10/08/21 Sin Sam PA-C [address] [place] [address] Assigned PCP 10/09/21 08/18/22 Romelia Lemus PA-C [address] [facility] [address] [address] Assigned OBGYN Provider 10/09/21 Rola Tenorio MD ORTHOPAEDIC SURGERY [address] [place] [address] Assigned Musculoskeletal Provider 07/08/22 08/24/23 Viky Pedraza, [facility] Personal Advocate & Liaison (PAL) Nurse 08/18/22 12/21/22 [place] [address] [place] [address] Assigned PCP 08/19/22 08/10/23 Sin Sam PA-C [address] [place] [address] Assigned PCP 08/11/23 09/07/23 Elif Yu MD [address] [place] [address] Assigned PCP 09/08/23 04/09/24 [place] [address] [place] [address] Assigned PCP 04/10/24 David Galicia MD [address] [facility] [address] [place] [address] Cardiovascular Disease 05/16/24 documented as of this encounter
--- OUTSIDE RECORDS SUMMARY | 2024-10-01 09:48 | XMS_ITS | Encounter Summary ---
Author Organization [facility] Address [address] [place] [address] Care Team Providers Care Sky Diver Name Role Phone Yanick Bello MD Primary Care Provider Unavailable Sapna Montelongo RN Unavailable Unavailable Yanick Bello MD Unavailable UnaRick Ariza MD Unavailable Heir Aguilar DPM Unavailable [phone] Nilo Rios MD Unavailable [phone] Olivier Haynes RN Unavailable Unavailable Romelia Lemus-C Unavailable [phone] Sin Sam-C Unavailable +0 Mendy Weaver RN Unavailable Unavailable Yanick Bello MD Unavailable UnavaSin Abebe-C Unavailable +0 Yanick Bello MD Unavailable UnaSin Guerrero-C Unavailable +0 Romelia Lemus-C Unavailable [phone] Sin Sam-C Primary Care Provider Rola Tenorio MD Unavailable Praveena Shin MD Primary Care Provider [phone] Viky Pedraza RN Unavailable [phone] Praveena Shin MD Unavailable Sin Sam PA-C Unavailable Elif Yu MD Unavailable [phone] Praveena Shin MD Unavailable David Galicia MD Unavailable [phone] Reason for Visit * Reason Comments Medication Refill Encounter Details Date Type Department Care Team (Late st Contact Info) Description 09/17/[address] [address] Yanick Bello MD Medication Refill [...] and Family Once a week 09/05/2019 Attends [employer] Services Never 09/05 Active Member of Clubs [...] Answer Date Recorded PHQ-2 Score 0 09/05/2019 [facility] of Occupat ional Health - Occupational Stress [...] AM CDT Legal Sex Male 4:20 AM AED TRAINER Gender Identity Male 08/30/2020 11:01 AM CDT Sexual Orientation Straight 08/30/2020 11 :01 AM CDT 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 No / Unsure 09/03/2020 7:08 AM CDT documented as of this encounter Plan of Treatment Not on file documented as of this encounter Visit Diagnoses Diagnosis Sleep disorder Sleep disturbance, unspecified documented in this encounter Additional Health Concerns Infection Onset Date Last Indicated Resolved Time COVID-19 Comment:01/01/2023 Patient tested positive for COVID on 12/31/22 symptom onset 12/30/22 Carrie Agustin, Infection Prevention 12/30/2022 01/01/2023 01/20/2023 11:41 PM AED TRAINER Assessment Noted Time PHQ-9 Depression Total Score: 6 07/20/20 20 7:11 AM CDT documented as of this encounter Care Teams Sky Diver Relationship Specialty Start Date End Date Yanick Bello MD PCP - General Family Practice 11/27/11 11/16/21 Sin Sam PA-C [address] [place] [address] PCP - General Family Medicine 11/17/21 08/16/22 [place] [address] [place] [address] PCP - General Family Medicine 08/17/22 07/07/24 Sapna Montelongo, [facility] Personal Advocate & Liaison (PAL) Family Practice 09/05/19 10/21/20 Yanick Bello MD Assigned PCP 02/15/20 02/09/21 Rick Yañez MD [address] [place] [address] Assigned Sleep Provider 09/10/20 Heri Aguilar DPM [address] [facility] [address] [place] [address] Assigned Musculoskeletal Provider 09/10/20 02/01/21 Nilo Rios MD [address] [place] [address] Assigned Surgical Provider 10/03/20 04/01/22 Olivier Haynes RN Personal Advocate & Liaison (PAL) Family Practice 10/21/20 03/18/21 Romelia Lemus PA-C [address] [place] [address] Assigned OBGYN Provider 02/02/2110/08 Sin Sam PA-C [address] [place] [id number] Assigned PCP 02/10/21 04/23/21 Mendy Weaver RN Personal Advocate & Liaison (PAL) Family Medicine 03/17/21 04/14/21 Yanick Belol MD Assigned PCP 04/24/21 05/14/21 Sin Sam PA-C [address] [place] [address] [id number] Assigned PCP 05/15/21 07/23/21 Yanick Bello MD Assigned PCP 07/24/21 10/08/21 Sin Sam PA-C [address] [place] [address] Assigned PCP 10/09/21 08/18/22 Romelia Lemus PA-C [address] [address] Assigned OBGYN Provider 10/09/21 Rola Tenorio MD ORTHOPAEDIC SURGERY [facility] [address] [address] Assigned Musculoskeletal Provider 07/08/22 08/24/23 Viky Pedraza RN Personal Advocate & Liaison (PAL) Nurse 08/18/22 12/21/22 [place] [address] [place] [address] Assigned PCP 08/19/22 08/10/23 Sin Sam PA-C [address] [place] [address], [place] [address] Assigned PCP 08/11/23 09/07/23 Elif uY MD [address] [facility] [address] Assigned PCP 09/08/23 04/09/24 [place] [address] [place] [address] Assigned PCP 04/10/24 David Galicia MD [address] [facility] [address] [place] [address] Cardiovascular Disease 05/16/24 documented as of this encounter
--- OUTSIDE RECORDS SUMMARY | 2024-10-01 09:48 | XMS_ITS | Encounter Summary ---
Author Organization [facility] Address [address] [place] [address] Care Team Providers Care Campaign Management Senior Manager Name Role Phone Yanick Bello MD Primary Care Provider Unavailable Yanick Bello MD Unavailable UnaRick Ariza MD Unavailable Heri Aguilar DPM Unavailable [phone] Nilo Rios MD Unavailable [phone] Olivier Haynes RN Unavailable Unavailable Romelia Lemus-Sahil Unavailable [phone] Sin Sam-C Unavailable +[phone] Mendy Weaver RN Unavailable Unavailable Yanick Bello MD Unavailable UnaSin Guerrero-C Unavailable +[phone] Yanick Bello MD Unavailable UnaSin Guerrero-C Unavailable +[phone] Romelia Lemus-Sahil Unavailable [phone] Sin Sam PA-C Primary Care Provider Rola Tenorio MD Unavailable Praveena Shin MD Primary Care Provider [phone] Viky Pedraza RN Unavailable [phone] Praveena Shin MD Unavailable Sin Sam PA-C Unavailable Elif Yu MD Unavailable [phone] Praveena Shin MD Unavailable David Galicia MD Unavailable [phone] Reason for Visit * Reason Onset Date Comments Outreach 11/30/2020 [facility] GARRETT Encounter Details Date Type Department Care Team (Late st Contact Info) Description 11/30/2020 MyC Medical Advice [address] [address] Marcella Ingram Outreach (MARION GARRETT) Social History Tobacco Use Types Packs/Day Years [...] Answer Date Recorded PHQ-2 Score 0 09/05/2019 [facility] [place] of Occupat ional Health - Occupational Stress [...] AM CDT Legal 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 Patient due to schedule med check and preventative care visit. Patient driving now and would like Months Of Me message sent to patient with # to RN TAMI for callback to schedule. Sent. Olivier Whitmore RN DOZER MECHANIC documented in this encounter Plan of Treatment Not on file documented as of this encounter Visit Diagnoses Not on filedocumented in this encounter Additional Health Concerns Infection Onset Date Last Indicated Resolved Time COVID-19 Comment:01/01/2023 Patient tested positive for COVID on 12/31/22 symptom onset 12/30/22 Carrie Tuil, Infection Prevention 12/30/2022 01/01/2023 01/20/2023 11:41 PM BULLDOZER MECHANIC Assessment Noted Time PHQ-9 Depression Total Score: 6 07/20/20 20 7:11 AM CDT documented as of this encounter Care Teams Campaign Management Senior Manager Relationship Specialty Start Date End Date Yanick Bello MD PCP - General Family Practice 11/27/11 11/16/21 Sin Sam PA-C [address] [place] [address] PCP - General Family Medicine 11/17/21 08/16/22 [place] [address] [place] [address] PCP - General Family Medicine 08/17/22 07/07/24 Yanick Bello MD Assigned PCP 02/15/20 02/09/21 Rick Yañez MD [address] [place] [address] Assigned Sleep Provider 09/10/20 Heri Aguilar DPM [address] [facility] [address] [place], [place] [address] Assigned Musculoskeletal Provider 09/10/20 02/01/21 Nilo Rios MD [address] [place] [phone] Assigned Surgical Provider 10/03/20 04/01/22 Olivier Haynes, MAR[facility] Personal Advocate & Liaison (PAL) Family Practice 10/21/20 03/18/21 Romelia Lemus PA-C [address] [place] [address] Assigned OBGYN Provider 02/02/2110/08 Sin Sam PA-C [address] [place] [address] Assigned PCP 02/10/21 04/23/21 Mendy Weaver RN Personal Advocate & Liaison (PAL) Family Medicine 03/17/21 04/14/21 Yanick Bello MD Assigned PCP 04/24/21 05/14/21 Sin Sam PA-C [address] [place] [address] Assigned PCP 05/15/21 07/23/21 Yanick Bello MD Assigned PCP 07/24/21 10/08/21 Sin Sam PA-C [address] [place] [address] Assigned PCP 10/09/21 08/18/22 Romelia Lemus PA-C [address] [place] [address] Assigned OBGYN Provider 10/09/21 Rola Tenorio MD ORTHOPAEDIC SURGERY [address] [place] [address] Assigned Musculoskeletal Provider 07/08/22 08/24/23 Viky Pedraza RN Personal Advocate & Liaison (PAL) Nurse 08/18/22 12/21/22 [place] [address] [place] [address] Assigned PCP 08/19/22 08/10/23 Sin Sam PA-C [address] [place] [address] Assigned PCP 08/11/23 09/07/23 Elif Yu MD [address]20 [place] [address] Assigned PCP 09/08/23 04/09/24 [place] [address] [place] [address] Assigned PCP 04/10/24 David Galicia MD [address] [place] [address] Cardiovascular Disease 05/16/24 documented as of this encounter
--- OUTSIDE RECORDS SUMMARY | 2024-10-01 09:48 | XMS_ITS | Referral Summary ---
Author Organization [place] Address [address] [place] [address]. 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 Benign prostatic hyperplasia (BPH) with straining [...] of malignant neoplasm of gastrointestinal tract 02/07/2022 Immunizations Name Administration Dates Next Due COVID-19 MONOVALENT 12+ (Pfizer) 03/11/2021,04/0 12/2020 Influenza (IIV3) PF 08/26/2013, 2,09/11/2011, 009 Influenza Vaccine (Flucelvax Quadrivalent) 08/25/2021 Influenza Vaccine 18-64 (Flublok) 08/19/2020,,09/11/2018 Influenza Vaccine >6 months,quad, PF 08/24/2016, 09/08/2015 Influenza,INJ,MDCK,PF,Quad >6mo(Flucelvax) 08/09/2022 Pneumo Conj 13-V (2010&after) 09/05/2019 TDAP Vaccine (Adacel) 03/01/2018,06/28/2007 Social History Tobacco Use Types Packs/Day Years [...] often do you attend chur ch or restorationist services? 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 Not on file Not on file Last Filed Vital Signs Vital Sign Reading Time Taken Comments Blood Pressure 128/82 12/14/2022 4:40 PM CAN MARKER Pulse 86 12/14/2022 4:40 PM CAN MARKER Temperature 36.1 ??C (96.9 ??F) 12/14/2022 4:40 PM CS T Respiratory Rate 16 12/14/2022 4:40 PM CAN MARKER Oxygen Saturation 99% 12/14/2022 4:40 PM CAN MARKER Inhaled Oxygen Concentration - - Weight 98.4 kg (217 lb) 12/14/2022 4:40 PM CAN MARKER Height 180.3 cm (5' 11) 10/04/2022 12:55 PM CAN MARKER Body Mass Index 30.27 10/04/2022 12:55 PM CAN MARKER Plan of Treatment Not on file Procedures Procedure Name Priority Date/Time Associated Diagnosis [...] BASIC METABOLIC PANEL Routine 11/16/2022 11:17 AM CAN MARKER Benign essential hypertension PROSTATE SPECIFIC ANTIGEN SCREEN Routine 02/07/2022 8:21 AM CDT Routine general medical examination at a [facility] facility HEPATIC FUNCTION PANEL Routine 02/07/2022 8:21 AM CDT Liver fibrosis COLONOSCOPY - HIM SCAN 10/15/2018 12:00 AM CAN MARKER FECAL COLORECTAL CANCER SCREEN FIT Routine 04/27/2017 7:00 AM CDT Dyspepsia HEPATITIS C ANTIBODY Routine 10/05/2014 11:25 AM CAN MARKER Myalgia And Myositis, Unspecified from Last 3 Months or Most Recently Relevant to Health Maintenance Results * Potassium (External Result) (07/07/2024 10:47 AM CDT) Pathologist [facility] Potassium (External) 4.5 3.6 - 5.1 mmol/L [facility] Blood 07/07/2024 10:4 7 AM CDT Narrative [facility] - 07/07/2024 10:47 AM CDT [facility] - External Lab Results us Provider Outside LAB - HIM EXTERNAL RESULT Final Result [facility] [address] [place] [address], [facility] [phone] * (ABNORMAL) Lipid Panel (External Result) (07/07/2024 10:47 AM CDT) Cholesterol (External) 175 90 - 199 mg/dL [facility] Triglycerides (External) 221(A) 40 - 149 mg/dL [facility] HDL Cholesterol (External) 36 >=40 mg/dL [facility] LDL Cholesterol Calculated (External) 95 <100 mg/dL [facility] Blood 07/07/2024 10:4 7 AM CDT [facility] - 07/07/2024 10:47 AM CDT [facility] - External Lab Results us Provider Outside LAB - HIM EXTERNAL RESULT Final Result Performing Organization Address [facility]/ZIP Co de Phone Number [facility] [address] [phone] * (ABNORMAL) Glucose (External Result) (07/07/2024 10:47 AM CDT) Glucose (External) 105(A) 60 - 115 mg/dL [facility] Blood 07/07/2024 10:4 7 AM CDT [facility] - 07/07/2024 10:47 AM CDT [facility] - External Lab Results us Provider Outside LAB - [facility] EXTERNAL RESULT Final Result Performing Organization Address [facility] Co de Phone Number [facility] [address] [place] [address], [facility] [phone] * Creatinine (External Result) (07/07/2024 10:47 AM CDT) Creatinine (External) 1.1 0.5 - 1.5 mg/dL [facility] Blood 07/07/2024 10:4 7 AM CDT [facility] - 07/07/2024 10:47 AM CDT [facility] - External Lab Results us Provider Outside LAB - [facility] EXTERNAL RESULT Final Result Performing Organization Address [facility] Co de Phone Number [facility] [address] [place] [address], [facility] [phone] * (ABNORMAL) AST (External Result) (07/07/2024 10:47 AM CDT) AST (External) 54(A) 12 - 35 U/L [facility] Blood 07/07/2024 10:4 7 AM CDT [facility] - 07/07/2024 10:47 AM CDT [facility] - External Lab Results us Provider Outside LAB - HIM EXTERNAL RESULT Final Result Performing Organization Address [facility]/ZIP Co de Phone Number [facility] [address] [place] [address], [facility] [phone] * (ABNORMAL) ALT (External Result) (07/07/2024 10:47 AM CDT) ALT (External) 52(A) 4 - 50 U/L [facility] Blood 07/07/2024 10:4 7 AM CDT [facility] - 07/07/2024 10:47 AM CDT [facility] - External Lab Results us Provider Outside LAB - HIM EXTERNAL RESULT Final Result Performing Organization Address [facility] Co de Phone Number [facility] [address] [place] [address], [facility] [phone] * Lab Result - HIM Scan (07/07/2024 [...] Gluc, K, Na, BUN) (11/16/2022 11:17 AM CAN MARKER) Sodium 140 136 - 145 mmol/L 11/16/2022 5:05 PM CAN MARKER [facility] Potassium 4.7 3.4 - 5.3 mmol/L 11/16/2022 5:05 PM CAN MARKER [facility] Chloride 103 98 - 107 mmol/L 11/16/2022 5:05 PM CAN MARKER [facility] Carbon Dioxide (CO2) 28 22 - 29 mmol/L 11/16/2022 5:05 PM CAN MARKER [facility] Anion Gap 9 7 - 15 mmol/L 11/16/2022 5:05 PM CAN MARKER [facility] Urea Nitrogen 19.2 8.0 - 23.0 mg/dL 11/16/2022 5:05 PM CAN MARKER [facility] Creatinine 1.14 0.67 - 1.17 mg/dL 11/16/2022 5:05 PM CAN MARKER [facility] Calcium 9.7 8.8 - 10.2 mg/dL 11/16/2022 5:05 PM CAN MARKER [facility] Glucose 111(H) 70 - 99 mg/dL 11/16/2022 5:05 PM CAN MARKER [facility] GFR Estimate 72 >60 mL/min/1.7 3m2 11/16/2022 5:05 PM CAN MARKER [facility] Comment:Effective October 202020 eGFRcr in adults is calculated using the 2020 CKD-EPI creatinine equation which includes age and gender (Estrella et al., NEJ, DOI: 10.1056/GPYTsf8480852) Blood STRUCTURE OF RIGHT UPPER LIMB / Unknown Venipuncture / Unknown 11/16/2022 11:17 AM CAN MARKER 11/16/2022 11:17 AM CAN MARKER us Britany Gomez PA-C LAB - BLOOD ORDERABLES Rosalino al Result [facility] [place] [facility] [address] [facility], [address] [address], [facility] [phone] * PSA, screen (02/07/2022 8:21 AM CDT) Prostate Specific Antigen Screen 1.96 0.00 - 4.00 ug/L 02/07/2022 1:44 PM CDT [facility] Blood STRUCTURE OF LEFT UPPER LIMB / Unknown Venipuncture / Unknown 02/07/2022 8:21 AM CDT 02/07/2022 8:30 AM CDT us Praveena Shin MD LAB - BLOOD ORDERABLES Final Res ult [facility] [address] Lab (no room number, 1st floor of [facility]) [place] [address], [facility] [phone] * (ABNORMAL) Hepatic panel (Albumin, ALT, AST, [...] BLOOD ORDERABLES Final Res ult [facility] [address] Lab (no room number, 1st floor of clinic) [place] [address], [facility] [phone] * COLONOSCOPY - HIM SCAN (10/15/2018 12:00 AM CAN MARKER) 10/15/2018 us Provider Outside PROCEDURES Final Result * Fecal colorectal cancer screen (FIT) (04/27/2017 7:00 AM CDT) Occult Blood Scn FIT Negative NEG [facility] Stool specimen (specimen) 04/27/2017 7:00 AM CDT 04/27/2017 8:14 AM CDT Praveena Shin MD LAB - STOOLS ORDERABLES Final Re sult [facility] [address] [place] [address] * (ABNORMAL) Hepatitis C antibody (10/05/2014 11:25 AM CAN MARKER) Pathologist [facility] Hepatitis C Antibody Nonreactive Assay performance characteristics have not been established for newborns, infants, and children (A) NEG [facility] 10/05/2014 11:2 5 AM CAN MARKER 10/05/2014 11:29 AM CAN MARKER us Yanick Bello MD LAB - BLOOD ORDERABLES Final Result Performing Organization Address City/[facility] Co de Phone Number [address] [address] from Last 3 Months or Most Recently Relevant to Health Maintenance Care Teams Four Horse Hitch Driver Relationship Specialty [place] [address] [place] [address] Assigned PCP 04/10/24 David Galicia MD [address] [facility] [address] [place] [address] Cardiovascular Disease 05/16/24
--- OUTSIDE RECORDS SUMMARY | 2024-10-01 09:48 | XMS_ITS | Encounter Summary ---
Author Organization [place] Address [address] [place] [address] Care Team Providers Care Concrete Products Machine Operator Name Role Phone Yanick Bello MD Primary Care Provider Unavailable Nilo Rios MD Unavailable [phone] Olivier Haynes RN Unavailable Unavailable Romelia Lemus-C Unavailable [phone] Sin Sam-C Unavailable [phone] Mendy Weaver RN Unavailable Unavailable Yanick Bello MD Unavailable Unavai Sin Durán-C Unavailable [phone] Yanick Bello MD Unavailable Unavai Sin Durán-C Unavailable [phone] Romelia Lemus-C Unavailable Sin Sam PA-C Primary Care Provider Rola Tenorio MD Unavailable Praveena Shin MD Primary Care Provider [phone] Viky Pedraza RN Unavailable [phone] Praveena Shin MD Unavailable Sin Sam-C Unavailable [phone] Elif Yu MD Unavailable [phone] Praveena Shin MD Unavailable David Galicia MD Unavailable Encounter Details Date Type Department Care Team (Late st Contact Info) Description 03/12/2021 Documentation Only INTERFACED REPORT Unknown, Provider Social History Tobacco Use Types Packs/Day Years [...] and Family Once a week 09/05/2019 Attends Restorationist Services Never 09/05 Active Member of Clubs [...] Answer Date Recorded PHQ-2 Score 0 09/05/2019 [facility] [place] of Occupat ional Health - Occupational [...] AM CDT Legal Sex Male 4:20 AM VALIDATION MANAGER Gender Identity Male 08/30/2020 11:01 AM CDT [...] have Coronavirus / COVID-19? No / Unsure 03/14/2021 12:24 PM CDT documented as of this encounter Plan of Treatment Not on file documented as of this encounter Visit Diagnoses Not on filedocumented in this encounter Additional Health Concerns Infection Onset Date Last Indicated Resolved Time COVID-19 Comment:01/01/2023 Patient tested positive for COVID on 12/31/22 symptom onset 12/30/22 Carrie Agustin, Infection Prevention 12/30/2022 01/01/2023 01/20/2023 11:41 PM VALIDATION MANAGER Assessment Noted Time PHQ-9 Depression Total Score: 3 02/11/20 21 7:04 AM CDT documented as of this encounter Care Teams Concrete Products Machine Operator Relationship Specialty Start Date End Date Yanick Bello MD PCP - General Family Practice 11/27/11 11/16/21 Sin Sam PA-C [address] [place] [address] PCP - General Family Medicine 11/17/21 08/16/22 [place] [address] [facility] [place] [address] PCP - General Family Medicine 08/17/22 07/07/24 Nilo Rios MD [address] [place] [address] Assigned Surgical Provider 10/03/20 04/01/22 Olivier Haynes, [place] Personal Advocate & Liaison (PAL) Family Practice 10/21/20 03/18/21 Romelia Lemus PA-C [address] [place] [address] Assigned OBGYN Provider 02/02/2110/08 Sin Sam PA-C [address] [place] [address] Assigned PCP 02/10/21 04/23/21 Mendy Weaver RN Personal Advocate & Liaison (PAL) Family Medicine 03/17/21 04/14/21 Yanick Bello MD Assigned PCP 04/24/21 05/14/21 Sin Sam PA-C [address] [place] [address] Assigned PCP 05/15/21 07/23/21 Yanick Bello MD Assigned PCP 07/24/21 10/08/21 Sin Sam PA-C [address] [place] [address] Assigned PCP 10/09/21 08/18/22 Romelia Lemus PA-C [address] [place] [address] Assigned OBGYN Provider 10/09/21 Rola Tenorio MD ORTHOPAEDIC SURGERY [address] [place] [address] Assigned Musculoskeletal Provider 07/08/22 08/24/23 Viky Pedraza RN Personal Advocate & Liaison (PAL) Nurse 08/18/22 12/21/22 [place] [address] [place] [address] Assigned PCP 08/19/22 08/10/23 Sin Sam PA-C [address] [place] [address] Assigned PCP 08/11/23 09/07/23 Elif Yu MD [address] [facility] [place] [place] [address] Assigned PCP 09/08/23 04/09/24 [place] [address] [place] [address] Assigned PCP 04/10/24 David Galicia MD [address] [place] [address] Cardiovascular Disease 05/16/24 documented as of this encounter
--- OUTSIDE RECORDS SUMMARY | 2024-10-01 09:48 | XMS_ITS | Encounter Summary ---
Author Organization [place] Address [address] [place] [address] Care Team Providers Care Sports Journalist Name Role Phone Yanick Bello MD Primary Care Provider Unavailable Yanick Bello MD Unavailable UnaHeri Rivera DPM Unavailable [phone] Nilo Rios MD Unavailable [phone] Olivier Haynes RN Unavailable Unavailable Romelia Lemus PA-C Unavailable [phone] Sin Sam-C Unavailable [phone] Mendy Weaver RN Unavailable Unavailable Yanick Bello MD Unavailable UnaSin Guerrero-C Unavailable + Yanick Bello MD Unavailable Unavai labSin [place]nis-C Unavailable [phone] Romelia Lemus PA-C Unavailable [phone] Sin Sam-C Primary Care Provider Rola Tenorio MD Unavailable [phone] Praveena Shin MD Primary Care Provider [phone] Viky Pedraza RN Unavailable [phone] Praveena Shin MD Unavailable Sin Sam PA-C Unavailable [phone] Elif Yu MD Unavailable Praveena Shin MD Unavailable David Galicia MD Unavailable [phone] Encounter Details Date Type Department Care Team (Late st Contact Info) Description 2020 My[facility] Medical Advice [address] [address] Olivier Haynes, RN Social History [...] and Family Once a week 09/05/2019 Attends Mu-Ism Services Never 09/05 Active Member of Clubs [...] Answer Date Recorded PHQ-2 Score 0 09/05/2019 [facility] [place] of Occupat ional Health - Occupational Stress [...] AM CDT Legal Sex Male 4:20 AM PULP DRIER FIRER Gender Identity Male 08/30/2020 11:01 AM CDT [...] Infection Prevention 12/30/2022 01/01/2023 01/20/2023 11:41 PM PULP DRIER FIRER Assessment Noted Time PHQ-9 Depression Total Score: 6 07/20/20 20 7:11 AM CDT documented as of this encounter Care Teams Sports Journalist Relationship Specialty Start Date End Date Yanick Bello MD PCP - General Family Practice 11/27/11 11/16/21 Sin Sam PA-C [address] [place] [address] PCP - General Family Medicine 11/17/21 08/16/22 [place] [address] [place] [address] PCP - General Family Medicine 08/17/22 07/07/24 Yanick Bello MD Assigned PCP 02/15/20 02/09/21 Heri Aguilar DPM [address] [facility] [address] [place] [address] Assigned Musculoskeletal Provider 09/10/20 02/01/21 Nilo Rios MD [address] [place] [phone] Assigned Surgical Provider 10/03/20 04/01/22 Olivier Haynes RN Personal Advocate & Liaison (PAL) Family Practice 10/21/20 03/18/21 Romelia Lemus PA-C [address] [place] [address] Assigned OBGYN Provider 02/02/2110/08 Sin Sam PA-C [address] [place] [address] Assigned PCP 02/10/21 04/23/21 Mendy Weaver RN Personal Advocate & Liaison (PAL) Family Medicine 03/17/21 04/14/21 Yanick Bello MD Assigned PCP 04/24/21 05/14/21 Sin Sam PA-C [address] [place] [address] Assigned PCP 05/15/21 07/23/21 Yanick Bello MD Assigned PCP 07/24/21 10/08/21 Sin Sam PA-C [address] [place] [address] Assigned PCP 10/09/21 08/18/22 Romelia Lemus PA-C [address] [facility] [address] [address] Assigned OBGYN Provider 10/09/21 Rola Tenorio MD ORTHOPAEDIC SURGERY [address] [place] [address] Assigned Musculoskeletal Provider 07/08/22 08/24/23 Viky Pedraza, [place] Personal Advocate & Liaison (PAL) Nurse 08/18/22 12/21/22 [place] [address] [place] [address] Assigned PCP 08/19/22 08/10/23 Sin Sam PA-C [address] [place] [address] Assigned PCP 08/11/23 09/07/23 Elif Yu MD [address] [place] [address] Assigned PCP 09/08/23 04/09/24 [place] [address] [place] [address] Assigned PCP 04/10/24 David Galicia MD [address] [facility] [place] [address] [place] [address] Cardiovascular Disease 05/16/24 documented as of this encounter
--- OUTSIDE RECORDS SUMMARY | 2024-10-01 09:48 | XMS_ITS | Encounter Summary ---
Author Organization [place] Address [address] [place] [address] Care Team Providers Care Mattress And Foundation Sewer Name Role Phone Nilo Rios MD Unavailable [phone] Sin Sam PA-C Unavailable Sin Sam PA-C Primary Care Provider Rola Tenorio MD Unavailable Praveena Shin MD Primary Care Provider Viky Pedraza RN Unavailable Praveena Shin MD Unavailable Sin Sam PA-C Unavailable Elif Yu MD Unavailable Praveena Shin MD Unavailable David Galicia MD Unavailable [phone] Reason for Visit * Reason Onset Date Comments Sleep Problem 03/30/2022 Encounter Details Date Type Department Care Team (Late st Contact Info) Description 03/30/2022 [facility] [address] [phone] Praveena Shin MD [address] [place] [id number] Sleep Problem Social History Tobacco Use Types Packs/Day Years [...] How often do you attend chur or restoration services? Never 02/06/2022 Do you belong to any clubs o r organizations such as caodaism groups, unions, fraternal or athletic groups, or [...] Answer Date Recorded PHQ-2 Score 0 02/07/2022 [facility] [place] of Occupat ional Health - Occupational Stress [...] place to sleep or slept in a senior living (including now)? No 02/06/2022 Education Answer Date Recorded What is the highest level of school you have completed or the highest degree you have received? Bachelor's degree (e.g., BA, AB, BS) 09/05/2019 Sex and Gender Information Value Date Recorded Sex Assigned at Male 08/30/2020 11:01 AM CDT Legal Sex Male 4:20 AM SCIENCE SPECIALIST Gender Identity Male 08/30/2020 11:01 AM [...] suspected to have Coronavirus/COVID-19? No / Unsure 03/10/2022 10:18 AM CDT documented as of this encounter Miscellaneous Notes * Telephone Encounter - Sabrina Lyn RN - 03/30/2022 8:04 AM CDT Images from the original note were not included. Dr. Shin- see [employer] message below. Please advise. Sabrina Lyn RN 02/07/2022 [facility] Insomnia ? Duration: chronic. ?? Description Frequency of insomnia: nightly Time to fall asleep: 15 minutes Middle of night awakening: Nightly, usually about 3 AM. surveyor chain helper awakening: occasionally ?? Accompanying signs and symptoms: restless legs ?? History Similar episodes in past: no Previous evaluation/sleep study: Yes, normal. ?? Precipitating or alleviating factors: New stressful situation: no Caffeine intake after lunchtime: no OTC decongestants: no Any new medications: no ?? Therapies tried and outcome: ambein. ?? Hx of chronic hip pain, it has been going on for 1 year ago, pain is getting is worse, and pain is worse when he standing or sitting, better with walking, pt tried naprosyn with some success. ?? ASSESSMENT/PLAN: (G47.9) Sleep disorder Comment: discussed options for management, To insure a good sleep make sure that you don't take naps during daytime, start exercising about 1/2 hour a day if possible,go to bed at certain time every day. I also recommend : No TV in bed, no reading in bed, no coffee/caffeine after 2 pm. Stop ambien, and start on Plan: traZODone (DESYREL) 50 MG tablet 1/2 to 1 pill daily. Praveena Shin MD [facility] Other Notes All notes Instructions Return in about 1 year (around 02/07/2023) for Routine physical.. * Telephone Encounter - Katelyn Nguyen - 03/30/2022 7:18 AM CDT documented in this encounter Plan of Treatment Not on file documented as of this encounter Visit Diagnoses Diagnosis Sleep disorder Sleep disturbance, unspecified documented in this encounter Additional Health Concerns Infection Onset Date Last Indicated Resolved Time COVID-19 Comment:01/01/2023 Patient tested positive for COVID on 12/31/22 symptom onset 12/30/22 Carrie Agustin, Infection Prevention 12/30/2022 01/01/2023 01/20/2023 11:41 PM SCIENCE SPECIALIST Assessment Noted Time PHQ-9 Depression Total Score: 0 11/18/20 7:02 AM SCIENCE SPECIALIST documented as of this encounter Care Teams Mattress And Foundation Sewer Relationship Specialty Start Date End Date Sin Sam PA-C [address] [place] [address] PCP - General Family Medicine 11/17/21 08/16/22 [place] [address] [place] [address] PCP - General Family Medicine 08/17/22 07/07/24 Nilo Rios MD [address] [phone] Assigned Surgical Provider 10/03/20 04/01/22 Sin Sam PA-C [address] [place] [address] Assigned PCP 10/09/21 08/18/22 Rola Tenorio MD ORTHOPAEDIC SURGERY [address] [place] [address] Assigned Musculoskeletal Provider 07/08/22 08/24/23 Viky Pedraza RN Personal Advocate & Liaison (PAL) Nurse 08/18/22 12/21/22 [place] [address] [place] [address] Assigned PCP 08/19/22 08/10/23 Sin Sam PA-C [address] [place] [address] Assigned PCP 08/11/23 09/07/23 Elif Yu MD [address] [facility] [place] [address] Assigned PCP 09/08/23 04/09/24 [place] [address] [place] [address] Assigned PCP 04/10/24 David Galicia MD [address] [facility] [address] [place] [address] Cardiovascular Disease 05/16/24 documented as of this encounter
--- OUTSIDE RECORDS SUMMARY | 2024-10-01 09:48 | XMS_ITS | Encounter Summary ---
Author Organization [place] Address [address] [place] [address] Care Team Providers Care Health Plan Advisor Name Role Phone Rola Tenorio MD Unavailable [phone] Praveena Shin MD Primary Care Provider Viky Pedraza RN Unavailable Praveena Shin MD Unavailable Sin Sam PA-C Unavailable Elif Yu MD Unavailable [phone] Praveena Shin MD Unavailable David Galicia MD Unavailable [phone] Encounter Details Date Type Department Care Team (Late st Contact Info) Description 12/04/2022 [facility] Medical Advice [address] [address] Mariam Gama MA Social History Tobacco Use Types Packs/Day Years [...] often do you attend chur ch or cheondoism services? Never 02/06/2022 Do you belong to any clubs o r organizations such as yazdanism groups, unions, fraternal or athletic groups, or [...] Answer Date Recorded PHQ-2 Score 0 10/04/2022 [facility] of Occupat ional Health - Occupational [...] AM CDT Legal Sex Male 4:20 AM HERB COUNSELOR Gender Identity Male 08/30/2020 11:01 AM CDT [...] suspected to have Coronavirus/COVID-19? No / Unsure 11/16/2022 11:10 AM HERB COUNSELOR documented as of this encounter Plan of Treatment Not on file documented as of this encounter Visit Diagnoses Not on filedocumented in this encounter Additional Health Concerns Infection Onset Date Last Indicated Resolved Time COVID-19 Comment:01/01/2023 Patient tested positive for COVID on 12/31/22 symptom onset 12/30/22 Carrie Agustin, Infection Prevention 12/30/2022 01/01/2023 01/20/2023 11:41 PM HERB COUNSELOR Assessment Noted Time PHQ-9 Depression Total Score: 6 10/04/20 22 12:50 PM HERB COUNSELOR documented as of this encounter Care Teams Health Plan Advisor Relationship Specialty [place] [address] [place] [address] PCP - General Family Medicine 08/17/22 07/07/24 Rola Tenorio MD ORTHOPAEDIC SURGERY [address] [address] Assigned Musculoskeletal Provider 07/08/22 08/24/23 Viky Pedraza, [place] Personal Advocate & Liaison (PAL) Nurse 08/18/22 12/21/22 [place] [address] [place] [address] Assigned PCP 08/19/22 08/10/23 Sin Sam PA-C [address] [place] [address] Assigned PCP 08/11/23 09/07/23 Elif Yu MD [address] [place] [address] Assigned PCP 09/08/23 04/09/24 [place] [address] [place] [address] Assigned PCP 04/10/24 David Galicia MD [address] [place] [address] Cardiovascular Disease 05/16/24 documented as of this encounter
--- OUTSIDE RECORDS SUMMARY | 2024-10-01 09:48 | XMS_ITS | Encounter Summary ---
Author Organization [place] Address [address] [place] [address] Care Team Providers Care Gag Writer Name Role Phone Nilo Rios MD Unavailable [phone] Sin Sam PA-C Unavailable Sin Sam PA-C Primary Care Provider Rola Tenorio MD Unavailable Praveena Shin MD Primary Care Provider [phone] Viky Pedraza RN Unavailable [phone] Praveena Shin MD Unavailable Sin Sam PA-C Unavailable Elif Yu MD Unavailable Praveena Shin MD Unavailable David Galicia MD Unavailable Encounter Details Date Type Department Care Team (Late st Contact Info) Description 03/16/2022 [facility] [place] [address] [facility] 4th [place] [address] Rola Tenorio MD ORTHOPAEDIC SURGERY [address] [address] Social History Tobacco Use Types [...] How often do you attend chur or scientology services? Never 02/06/2022 Do you belong to any clubs o r organizations such as mormon groups, unions, fraternal or athletic groups, or [...] Answer Date Recorded PHQ-2 Score 0 02/07/2022 [facility] of Occupat ional Health - Occupational [...] place to sleep or slept in a nursing home (including now)? No 02/06/2022 Education Answer Date Recorded What is the highest level of school you have completed or the highest degree you have received? Bachelor's degree (e.g., BA, AB, BS) 09/05/2019 Sex and Gender Information Value Date Recorded Sex Assigned at Male 08/30/2020 11:01 AM CDT Legal Sex Male 4:20 AM ASSOCIATE ACCOUNT MANAGER Gender Identity Male 08/30/2020 11:01 AM [...] * Telephone Encounter - Nevaeh Astudillo - 03/20/2022 7:33 AM CDT documented in this encounter Plan of Treatment Not on file documented as of this encounter Visit Diagnoses Not on filedocumented in this encounter Additional Health Concerns Infection Onset Date Last Indicated Resolved Time COVID-19 Comment:01/01/2023 Patient tested positive for COVID on 12/31/22 symptom onset 12/30/22 Carrie Agustin, Infection Prevention 12/30/2022 01/01/2023 01/20/2023 11:41 PM ASSOCIATE ACCOUNT MANAGER Assessment Noted Time PHQ-9 Depression Total Score: 0 11/18/20 7:02 AM ASSOCIATE ACCOUNT MANAGER documented as of this encounter Care Teams Gag Writer Relationship Specialty Start Date End Date Sin Sam PA-C [address] [place] [address] PCP - General Family Medicine 11/17/21 08/16/22 [place] [address] [place] [address] PCP - General Family Medicine 08/17/22 07/07/24 Nilo Rios MD [address] [address] Assigned Surgical Provider 10/03/20 04/01/22 Sin Sam PA-C [address] [place] [address] Assigned PCP 10/09/21 08/18/22 Rola Tenorio MD ORTHOPAEDIC SURGERY [facility] [place][note 2][address] [address] Assigned Musculoskeletal Provider 07/08/22 08/24/23 Viky Pedraza RN Personal Advocate & Liaison (PAL) Nurse 08/18/22 12/21/22 [place] [address] [place] [address] Assigned PCP 08/19/22 08/10/23 Sin Sam PA-C [address] [place] [address] Assigned PCP 08/11/23 09/07/23 Elif Yu MD [address] [place] [address] Assigned PCP 09/08/23 04/09/24 [place] [address] [place] [address] Assigned PCP 04/10/24 David Galicia MD [address] [facility] [address] [place] [address] Cardiovascular Disease 05/16/24 documented as of this encounter
--- OUTSIDE RECORDS SUMMARY | 2024-10-01 09:48 | XMS_ITS | Encounter Summary ---
Author Organization [place] Address [address] [place] [address] Care Team Providers Care Scrap Kettle Tender Name Role Phone Yanick Bello MD Primary Care Provider Unavailable Nilo Rios MD Unavailable [phone] Olivier Haynes RN Unavailable Unavailable Romelia Lemus-C Unavailable Sin Sam-C Unavailable [phone] Mendy Weaver RN Unavailable Unavailable Yanick Bello MD Unavailable Unavai Sin Durán-C Unavailable [phone] Yanick Bello MD Unavailable Unavai Sin Durán-C Unavailable [phone] Romelia Lemus-C Unavailable Sin Sam PA-C Primary Care Provider Rola Tenorio MD Unavailable [phone] Praveena Shin MD Primary Care Provider [phone] Viky Pedraza RN Unavailable [phone] Praveena Shin MD Unavailable Sin Sam-C Unavailable [phone] Elif Yu MD Unavailable [phone] Praveena Shin MD Unavailable David Galicia MD Unavailable Encounter Details Date Type Department Care Team (Late st Contact Info) Description 02/19/2021 Documentation Only INTERFACED REPORT Unknown, Provider Social [...] and Family Once a week 09/05/2019 Attends Jain Services Never 09/05 Active Member of Clubs [...] Answer Date Recorded PHQ-2 Score 0 09/05/2019 [facility] of Occupat ional Health - Occupational Stress [...] AM CDT Legal Sex Male 4: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 No / Unsure 02/21/2021 12:28 PM CDT documented as of this encounter Plan of Treatment Not on file documented as of this encounter Visit Diagnoses Not on filedocumented in this encounter Additional Health Concerns Infection Onset Date Last Indicated Resolved Time COVID-19 Comment:01/01/2023 Patient tested positive for COVID on 12/31/22 symptom onset 12/30/22 Carrie Agustin, Infection Prevention 12/30/2022 01/01/2023 01/20/2023 11:41 PM POWER PLANT SUPERVISOR Assessment Noted Time PHQ-9 Depression Total Score: 3 02/11/20 21 7:04 AM CDT documented as of this encounter Care Teams Scrap Kettle Tender Relationship Specialty Start Date End Date Yanick Bello MD PCP - General Family Practice 11/27/11 11/16/21 Sin Sam PA-C [address] [place] [address] PCP - General Family Medicine 11/17/21 08/16/22 [place] [address] [facility] [place] [address] PCP - General Family Medicine 08/17/22 07/07/24 Nilo Rios MD [address] [place] [address] Assigned Surgical Provider 10/03/20 04/01/22 Olivier Haynes, [place] Personal Advocate & Liaison (PAL) Family Practice 10/21/20 03/18/21 Romelia Lemus PA-C [address] [place] [address] Assigned OBGYN Provider 02/02/2110/08 Sin Sam PA-C [address] [place] [address] Assigned PCP 02/10/21 04/23/21 Mendy Weaver RN Personal Advocate & Liaison (PAL) Family Medicine 03/17/21 04/14/21 Yanick Bello MD Assigned PCP 04/24/21 05/14/21 Sin Sam PA-C [address] [place] [address] Assigned PCP 05/15/21 07/23/21 Yanick Bello MD Assigned PCP 07/24/21 10/08/21 Sin Sam PA-C [address] [place] [address] Assigned PCP 10/09/21 08/18/22 Romelia Lemsu PA-C [address] [place] [address] Assigned OBGYN Provider 10/09/21 Rola Tenorio MD ORTHOPAEDIC SURGERY [address] [place] [address] Assigned Musculoskeletal Provider 07/08/22 08/24/23 Viky Pedraza RN Personal Advocate & Liaison (PAL) Nurse 08/18/22 12/21/22 [place] [address] [place] [address] Assigned PCP 08/19/22 08/10/23 Sin Sam PA-C [address] [place] [address] Assigned PCP 08/11/23 09/07/23 Elif Yu MD [address] [facility] [place] [address] Assigned PCP 09/08/23 04/09/24 [place] [address] [place] [address] Assigned PCP 04/10/24 David Galicia MD [address] [place] [address] Cardiovascular Disease 05/16/24 documented as of this encounter
--- OUTSIDE RECORDS SUMMARY | 2024-10-01 09:48 | XMS_ITS | Encounter Summary ---
Author Organization [facility] Address [address] [place] [address] Care Team Providers Care Gas Roller Operator Name Role Phone Praveena Shin MD Unavailable David Galicia MD Unavailable [phone] Reason for Visit * Reason Onset Date Comments Outreach 07/08/2024 Visit due Encounter Details Date Type Department Care Team (Late st Contact Info) Description 07/08/2024 [facility] Medical Advice [address] [address] Jaqueline Gonzalez CMA Outreach (Visit due ) Social History Tobacco Use Types Packs/Day [...] often do you attend chur ch or sabianist services? Never 02/06/2022 Do you belong to any clubs o r organizations such as shinto groups, unions, fraternal or athletic groups, or [...] Answer Date Recorded PHQ-2 Score 0 12/14/2022 [facility] of Occupat ional Health - [...] place to sleep or slept in a alf (including now)? 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 Shin he will be seeing the [facility] Dr. Shin removed from care team Viky Pedraza Registered Nurse [facility] documented in this encounter Plan of Treatment Not on file documented as of this encounter Visit Diagnoses Not on filedocumented in this encounter Additional Health Concerns Assessment Noted Time PHQ-9 Depression Total Score: 3 12/14/19 23 4:46 PM MANAGER HVAC documented as of this encounter Care Teams Gas Roller Operator Relationship Specialty [place] [address] [place] [address] Assigned PCP 04/10/24 David Galicia MD [address] [facility] [address] [place] [address] Cardiovascular Disease 05/16/24 documented as of this encounter
--- OUTSIDE RECORDS SUMMARY | 2024-10-01 09:49 | XMS_ITS | Encounter Summary ---
Author Organization [place] Address [address] [place] [address] Care Team Providers Care Fishing Rod Trimmer Name Role Phone Yanick Bello MD Primary Care Provider Unavailable Yanick Bello MD Unavailable Unavai Yanick Beth MD Unavailable Unavai lable Praveena Shin MD Unavailable Sapna Montelongo RN Unavailable Unavailable Yanick Bello MD Unavailable Unavai lable Yanick Bello MD Unavailable Unavai lable Chance Salazar PA-C Unavailable [phone] Rick Yañez MD Unavailable Heri Aguilar DPM Unavailable [phone] Nilo Rios MD Unavailable [phone] Olivier Haynes RN Unavailable Unavailable Romelia Lemus-C Unavailable [phone] Sin Sam-C Unavailable [phone] Mendy Weaver RN Unavailable Unavailable Yanick Bello MD Unavailable Unavai labSin Ennis-C Unavailable [phone] Yanick Bello MD Unavailable Unavai labSin Ennis-C Unavailable [phone] Romelia Lemus-C Unavailable [phone] Sin Sam PA-C Primary Care Provider Rola Tenorio MD Unavailable Praveena Shin MD Primary Care Provider Viky Pedraza RN Unavailable [phone] Praveena Shin MD Unavailable Sin Sam PA-C Unavailable [phone] Elif Yu MD Unavailable Praveena Shin MD Unavailable David Galicia MD Unavailable [phone] Encounter Details Date Type Department Care Team (Late st Contact Info) Description 09/25/2014 [facility] Medical Advice Initial Department [facility] Social History Tobacco Use Types Packs/Day Years Used Date Smoking Tobacco: Never Smokeless Tobacco: Never Alcohol Use Standard Drinks/Week Comments No 0 (1 standard drink = 0.6 oz pur e alcohol) Sex and Gender Information Value Date Recorded Sex Assigned at Male 08/30/2020 11:01 AM CDT Legal Sex Male 4:20 AM DYNAMITE CARTRIDGE CRIMPER Gender Identity Male 08/30/2020 11:01 AM CDT [...] Infection Prevention 12/30/2022 01/01/2023 01/20/2023 11:41 PM DYNAMITE CARTRIDGE CRIMPER documented as of this encounter Care Teams Fishing Rod Trimmer Relationship Specialty Start Date End Date Yanick Bello MD PCP - General Family Practice 11/27/11 11/16/21 Yanick Bello MD PCP - Assigned PCP 08/04/18 01/21/19 Sin Sam PA-C [address] [place] [address] PCP - General Family Medicine 11/17/21 08/16/22 [place] [address] [place] [address] PCP - General Family Medicine 08/17/22 07/07/24 Yanick Bello MD Assigned PCP 08/04/18 07/19/19 [place] [address] [place] [address] Assigned PCP 07/20/19 09/13/19 Sapna Montelongo, [place] Personal Advocate & Liaison (PAL) Family Practice 09/05/19 10/21/20 Yanick Bello MD Assigned PCP 02/15/20 02/09/21 Yanick Bello MD Assigned PCP 09/14/19 01/31/20 Chance Salazar PA-C [address] [place] [address] Assigned PCP 02/01/20 02/14/20 Rick Yañez MD [address] [place] [address] Assigned Sleep Provider 09/10/20 Heri Aguilar DPM [address] [facility] [address] [place] [address] Assigned Musculoskeletal Provider 09/10/20 02/01/21 Nilo Rios MD [address] [place] [address] Assigned Surgical Provider 10/03/20 04/01/22 Olivier Haynes, MAR[place] Personal Advocate & Liaison (PAL) Family Practice 10/21/20 03/18/21 Romelia Lemus PA-C [address] [place] [address] Assigned OBGYN Provider 02/02/2110/08 Sin Sam PA-C [address] [place] [address] Assigned PCP 02/10/21 04/23/21 Mendy Weaver RN Personal Advocate & Liaison (PAL) Family Medicine 03/17/21 04/14/21 Yanick Bello MD Assigned PCP 04/24/21 05/14/21 Sin Sam PA-C [address] [place] [address] Assigned PCP 05/15/21 07/23/21 Yanick Bello MD Assigned PCP 07/24/21 10/08/21 Sin Sam PA-C [address] [place] [address] Assigned PCP 10/09/21 08/18/22 Romelia Lemus PA-C [address] [place] [address] Assigned OBGYN Provider 10/09/21 Rola Tenorio MD ORTHOPAEDIC SURGERY [address] [address] Assigned Musculoskeletal Provider 07/08/22 08/24/23 Viky Pedraza, MAR[place] Personal Advocate & Liaison (PAL) Nurse 08/18/22 12/21/22 [place] [address] [place] [address] Assigned PCP 08/19/22 08/10/23 Sin Sam PA-C [address] [place] [address] Assigned PCP 08/11/23 09/07/23 Elif Yu MD [address] [facility] [place] [address] Assigned PCP 09/08/23 04/09/24 [place] [address] [place] [address] Assigned PCP 04/10/24 David Galicia MD [address] [facility] [address] [place] [address] Cardiovascular Disease 05/16/24 documented as of this encounter
--- OUTSIDE RECORDS SUMMARY | 2024-10-01 09:49 | XMS_ITS | Encounter Summary ---
Author Organization [place] Address [address] [place] [address] Care Team Providers Care Office Machines Wirer Name Role Phone Yanick Bello MD Primary Care Provider Unavailable Yanick Bello MD Unavailable Praveena Aleman MD Unavailable Sapna Montelongo RN Unavailable Unavailable Yanick Bello MD Unavailable Unavai Yanick Beth MD Unavailable Unavai labChance Thomas PA-C Unavailable [phone] Rick Yañez MD Unavailable Heri Aguilar DPM Unavailable [phone] Nilo Rios MD Unavailable [phone] Olivier Haynes RN Unavailable Unavailable Romelia Lemus-C Unavailable [phone] Sin Sam-C Unavailable +[phone] Mendy Weaver RN Unavailable Unavailable Yanick Bello MD Unavailable Unavai Sin Durán-C Unavailable [phone] Yanick Bello MD Unavailable Unavai Sin Durán-C Unavailable [phone] Romelia Lemus-C Unavailable [phone] Sin SamC Primary Care Provider Rola Tenorio MD Unavailable Praveena Shin MD Primary Care Provider Viky Pedraza RN Unavailable [phone] Praveena Shin MD Unavailable Sin Sam PA-C Unavailable [phone] Elif Yu MD Unavailable [phone] Praveena Shin MD Unavailable David Galicia MD Unavailable [phone] Encounter Details Date Type Department Care Team (Late st Contact Info) Description 04/08/2019 [facility] Medical Advice [address] [address] Yanick Bello MD Sleep disorder Social History Tobacco Use Types Packs/Day Years Used Date Smoking Tobacco: Some Days Cigarettes Started: 04/19/2015; Last attempted to quit: 10/19/2016 Smokeless Tobacco: Never Comments:hx of vape cigarett e use Alcohol Use Standard Drinks/Week Comments Yes 0 (1 standard drink = 0.6 oz pur e alcohol) rarely PHQ-2 Answer Date Recorded PHQ-2 Score 0 11/27/2018 Sex and Gender Information Value Date Recorded Sex Assigned at Male 08/30/2020 11:01 AM CDT Legal Sex Male 4:20 AM ELECTORATE OFFICER Gender Identity Male 08/30/2020 11:01 AM CDT Sexual Orientation Straight 08/30/2020 11 :01 AM CDT 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 Not on file Not on file documented as of this encounter Miscellaneous Notes * Telephone Encounter - Salome Corral RN - 04/08/2019 12:45 PM CDT zolpidem (AMBIEN) 10 MG tablet Last Written Prescription Date: 02/26/19 Last Fill Quantity: 30 # refills: 0 Last Office Visit: 01/29/19 Future Office visit: Pt has appt with Sleep Medicine on 04/18 Routing refill request to provider for review/approval because: Drug not on the [facility], [facility] or Health refill protocol or controlled substance Please review and authorize if appropriate, Thank you, Salome Guardado RN documented in this encounter Plan of Treatment Not on file documented as of this encounter Visit Diagnoses Diagnosis Sleep disorder Sleep disturbance, unspecified documented in this encounter Additional Health Concerns Infection Onset Date Last Indicated Resolved Time COVID-19 Comment:01/01/2023 Patient tested positive for COVID on 12/31/22 symptom onset 12/30/22 Carrie Agustin, Infection Prevention 12/30/2022 01/01/2023 01/20/2023 11:41 PM ELECTORATE OFFICER Assessment Noted Time PHQ-9 Depression Total Score: 9 09/12/20 18 7:17 AM CDT documented as of this encounter Care Teams Office Machines Wirer Relationship Specialty Start Date End Date Yanick Bello MD PCP - General Family Practice 11/27/11 11/16/21 Sin Sam PA-C [address] [place] [address] PCP - General Family Medicine 11/17/21 08/16/22 [place] [address] [place] [address] PCP - General Family Medicine 08/17/22 07/07/24 Yanick Bello MD Assigned PCP 08/04/18 07/19/19 [place] [address] [place] [address] Assigned PCP 07/20/19 09/13/19 Sapna Montelongo, [place] Personal Advocate & Liaison (PAL) Family Practice 09/05/19 10/21/20 Yanick Bello MD Assigned PCP 02/15/20 02/09/21 Yanick Bello MD Assigned PCP 09/14/19 01/31/20 Chance Salazar PA-C [address] [place] [address] Assigned PCP 02/01/20 02/14/20 Rick Yañez MD [address] [place] [address] Assigned Sleep Provider 09/10/20 Heri Aguilar DPM [address] [facility] [address] [place], [place] [address] Assigned Musculoskeletal Provider 09/10/20 02/01/21 Nilo Rios MD [address] [place] [address] Assigned Surgical Provider 10/03/20 04/01/22 Olivier Haynes RN Personal Advocate & Liaison (PAL) Family Practice 10/21/20 03/18/21 Romelia Lemus PA-C [address] [place] [address] Assigned OBGYN Provider 02/02/2110/08 Sin Sam PA-C [address] [place] [address] Assigned PCP 02/10/21 04/23/21 Mendy Weaver RN Personal Advocate & Liaison (PAL) Family Medicine 03/17/21 04/14/21 Yanick Bello MD Assigned PCP 04/24/21 05/14/21 Sin Sam PA-C [address] [place] [address] Assigned PCP 05/15/21 07/23/21 Yanick Bello MD Assigned PCP 07/24/21 10/08/21 Sin Sam PA-C [address] [place] [address] Assigned PCP 10/09/21 08/18/22 Romelia Leums PA-C [address] [address] Assigned OBGYN Provider 10/09/21 Rola Tenorio MD ORTHOPAEDIC SURGERY [address] [place] [address] Assigned Musculoskeletal Provider 07/08/22 08/24/23 Viky Pedraza RN Personal Advocate & Liaison (PAL) Nurse 08/18/22 12/21/22 [place] [address] [place] [address] Assigned PCP 08/19/22 08/10/23 Sin Sam PA-C [address] [place] [address] Assigned PCP 08/11/23 09/07/23 Elif Yu MD [address] [facility] [address] [place] [address] Assigned PCP 09/08/23 04/09/24 [place] [address] [place] [facility] [place] [address] Assigned PCP 04/10/24 David Galicia MD [address] [facility] [address] [place] [address] Cardiovascular Disease 05/16/24 documented as of this encounter
--- OUTSIDE RECORDS SUMMARY | 2024-10-01 09:49 | XMS_ITS | Encounter Summary ---
Author Organization [place] Address [address] [place] [address] Care Team Providers Care Snowboard Instructor Name Role Phone Yanick Bello MD Primary Care Provider Unavailable Sapna Montelongo RN Unavailable Unavailable Yanick Bello MD Unavailable UnaRick Ariza MD Unavailable Heri Aguilar DPM Unavailable [phone] Nilo Rios MD Unavailable [phone] Olivier Haynes RN Unavailable Unavailable Rmoelia Lemus-C Unavailable [phone] Sin Sam-C Unavailable +[phone] Mendy Weaver RN Unavailable Unavailable Yanick Bello MD Unavailable UnavaSin Abebe-C Unavailable +[phone] Yanick Bello MD Unavailable UnaSin Guerrero-C Unavailable +[phone] Romelia Lemus-C Unavailable [phone] Sin Sam-C Primary Care Provider Rola Tenorio MD Unavailable Praveena Shin MD Primary Care Provider [phone] Viky Pedraza RN Unavailable [phone] Praveena Shin MD Unavailable Sin Sam PA-C Unavailable [phone] Elif Yu MD Unavailable [phone] Praveena Shin MD Unavailable David Galicia MD Unavailable Encounter Details Date Type Department Care Team (Late st Contact Info) Description 09/02/[address] [facility] [place] [address] [place] [address] Romelia Lemus PA-C [address] [place] [address] Social History Tobacco Use Types Packs/Day Years [...] and Family Once a week 09/05/2019 Attends Oriental Orthodox Services Never 09/05 Active Member of Clubs [...] Answer Date Recorded PHQ-2 Score 0 09/05/2019 [facility] [place] of Occupat ional Health - Occupational Stress [...] AM CDT Legal Sex Male 4:20 AM REGULATORY AFFAIRS SPEC Gender Identity Male 08/30/2020 11:01 AM CDT [...] Infection Prevention 12/30/2022 01/01/2023 01/20/2023 11:41 PM REGULATORY AFFAIRS SPEC Assessment Noted Time PHQ-9 Depression Total Score: 6 07/20/20 20 7:11 AM CDT documented as of this encounter Care Teams Snowboard Instructor Relationship Specialty Start Date End Date Yanick Bello MD PCP - General Family Practice 11/27/11 11/16/21 Sin Sam PA-C [address] [place] [address] PCP - General Family Medicine 11/17/21 08/16/22 [place] [address] [place] [address] PCP - General Family Medicine 08/17/22 07/07/24 Sapna Montelongo RN Personal Advocate & Liaison (PAL) Family Practice 09/05/19 10/21/20 Yanick Bello MD Assigned PCP 02/15/20 02/09/21 Rick Yañez MD [address] [place] [address] Assigned Sleep Provider 09/10/20 Heri Aguilar DPM [address] [facility] [address] [place] [address] Assigned Musculoskeletal Provider 09/10/20 02/01/21 Nilo Rios MD [address] [place] [phone] Assigned Surgical Provider 10/03/20 04/01/22 Olivier Haynes, MARION Personal Advocate & Liaison (PAL) Family Practice 10/21/20 03/18/21 Romelia Lemus PA-C [address] [place] [address] Assigned OBGYN Provider 02/02/2110/08 Sin Sam PA-C [address] [place] [address] Assigned PCP 02/10/21 04/23/21 Mendy Weaver RN Personal Advocate & Liaison (PAL) Family Medicine 03/17/21 04/14/21 Yanick Bello MD Assigned PCP 04/24/21 05/14/21 Sin Sam PA-C [address] [place] [address] Assigned PCP 05/15/21 07/23/21 Yanick Bello MD Assigned PCP 07/24/21 10/08/21 Sin Sam PA-C [address] [place] [address] Assigned PCP 10/09/21 08/18/22 Romelia Lemus PA-C [address] [place] [address] Assigned OBGYN Provider 10/09/21 Rola Tenorio MD ORTHOPAEDIC SURGERY [address] [place] [address] 018344 Assigned Musculoskeletal Provider 07/08/22 08/24/23 Viky Pedraza RN Personal Advocate & Liaison (PAL) Nurse 08/18/22 12/21/22 [place] [address] [place] [address] Assigned PCP 08/19/22 08/10/23 Sin Sam PA-C [address] [place] [address] Assigned PCP 08/11/23 09/07/23 Elif Yu MD [address] [place] [address] Assigned PCP 09/08/23 04/09/24 [place] [address] [place] [address] Assigned PCP 04/10/24 David Galicia MD [address] [place] [id number] Cardiovascular Disease 05/16/24 documented as of this encounter
--- OUTSIDE RECORDS SUMMARY | 2024-10-01 09:49 | XMS_ITS | Encounter Summary ---
Author Organization [place] Address [address] [place] [address] Care Team Providers Care Sheet Metal Layout Mechanic Name Role Phone Yanick Bello MD Primary Care Provider Unavailable Sapna Montelongo RN Unavailable Unavailable Yanick Bello MD Unavailable UnaRick Ariza MD Unavailable Heri Aguilar DPM Unavailable [phone] Nilo Rois MD Unavailable [phone] Olivier Haynes RN Unavailable Unavailable Romelia Lemus-C Unavailable [phone] Sin Sam-C Unavailable +[phone] Mendy Weaver RN Unavailable Unavailable Yanick Bello MD Unavailable UnavaSin Abebe-C Unavailable +[phone] Yanick Bello MD Unavailable UnaSin Guerrero-C Unavailable +[phone] Romelia Lemus-C Unavailable [phone] Sin Sam-C Primary Care Provider Rola Tenorio MD Unavailable Praveena Shin MD Primary Care Provider [phone] Viky Pedraza RN Unavailable Praveena Shin MD Unavailable Sin Sam PA-C Unavailable Elif Yu MD Unavailable Praveena Shin MD Unavailable David Galicia MD Unavailable Encounter Details Date Type Department Care Team (Late st Contact Info) Description 08/25/2020 MyC Medical Advice [facility] [place] [address] [place] [address] Miko Kemp MD [address] [place] [address] Social History Tobacco Use Types Packs/Day [...] and Family Once a week 09/05/2019 Attends Zoroastrianism Services Never 09/05 Active Member of Clubs [...] Answer Date Recorded PHQ-2 Score 0 09/05/2019 [facility] [place] of Occupat ional Health - Occupational Stress [...] AM CDT 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 Gender Identity Male 08/30/2020 11:01 AM CDT [...] Infection Prevention 12/30/2022 01/01/2023 01/20/2023 11:41 PM MUCKING MACHINE OPERATOR Assessment Noted Time PHQ-9 Depression Total Score: 6 07/20/20 20 7:11 AM CDT documented as of this encounter Care Teams Sheet Metal Layout Mechanic Relationship Specialty Start Date End Date Yanick Bello MD PCP - General Family Practice 11/27/11 11/16/21 Sin Sam PA-C [address] [place] [address] PCP - General Family Medicine 11/17/21 08/16/22 [place] [address] [place] [address] PCP - General Family Medicine 08/17/22 07/07/24 Sapna Montelongo, [place] Personal Advocate & Liaison (PAL) Family Practice 09/05/19 10/21/20 Yanick Bello MD Assigned PCP 02/15/20 02/09/21 Rick Yañez MD [address] [place] [address] Assigned Sleep Provider 09/10/20 Heri Aguilar DPM [address] [facility] [address] [place], [place] [address] Assigned Musculoskeletal Provider 09/10/20 02/01/21 Nilo Rios MD [address] [place] [phone] Assigned Surgical Provider 10/03/20 04/01/22 Olivier Haynes, [place] Personal Advocate & Liaison (PAL) Family Practice 10/21/20 03/18/21 Romelia Lemus PA-C [address] [place] [address] Assigned OBGYN Provider 02/02/2110/08 Sin Sam PA-C [address] [place] [address] [id number] Assigned PCP 02/10/21 04/23/21 Mendy Weaver RN Personal Advocate & Liaison (PAL) Family Medicine 03/17/21 04/14/21 Yanick Bello MD Assigned PCP 04/24/21 05/14/21 Sin Sam PA-C [address] [place] [address] [id number] Assigned PCP 05/15/21 07/23/21 Yanick Bello MD Assigned PCP 07/24/21 10/08/21 Sin Sam PA-C [address] [place] [address] Assigned PCP 10/09/21 08/18/22 Romelia Lemus PA-C [address] [facility] [address] [address] Assigned OBGYN Provider 10/09/21 Rola Tenorio MD ORTHOPAEDIC SURGERY [address] [place] [address] Assigned Musculoskeletal Provider 07/08/22 08/24/23 Viky Pedraza RN Personal Advocate & Liaison (PAL) Nurse 08/18/22 12/21/22 [place] [address] [place] [address] Assigned PCP 08/19/22 08/10/23 Sin Sam PA-C [address] [place] [address] Assigned PCP 08/11/23 09/07/23 Elif Yu MD [address] [place] [address] Assigned PCP 09/08/23 04/09/24 [place] [address] [place] [address] Assigned PCP 04/10/24 David Galicia MD [address] [facility] [address] [place] [address] Cardiovascular Disease 05/16/24 documented as of this encounter
--- OUTSIDE RECORDS SUMMARY | 2024-10-01 09:49 | XMS_ITS | Encounter Summary ---
Author Organization [facility] Address [address] [place] [address] Care Team Providers Care Senior Business Process Analyst Name Role Phone Yanick Bello MD Primary Care Provider Unavailable Sapna Montelongo RN Unavailable Unavailable Yanick Bello MD Unavailable UnaYanick Flores MD Unavailable Unavai Chance Kwan-C Unavailable [phone] Rick Yañez MD Unavailable Heri Aguilar DPM Unavailable [phone] Nilo Rios MD Unavailable [phone] Olivier Haynes RN Unavailable Unavailable Romelia Lemus-C Unavailable [phone] Sin Sam-C Unavailable +[phone] Mendy Weaver RN Unavailable Unavailable Yanick Bello MD Unavailable UnaSin Guerrero-C Unavailable +[phone] Yanick Bello MD Unavailable UnaSin Guerrero-C Unavailable +[phone] Romelia Lemus-C Unavailable [phone] Sin Sam-C Primary Care Provider Rola Tenorio MD Unavailable Praveena Shin MD Primary Care Provider [phone] Viky Pedraza RN Unavailable [phone] Praveena Shin MD Unavailable Sin Sam PA-C Unavailable Elif Yu MD Unavailable [phone] Praveena Shin MD Unavailable David Galicia MD Unavailable [phone] Reason for Referral * Consultation (Routine) - Closed Specialty Diagnoses / Procedures Referred By Contyady t Referred To Contact Diagnoses RUQ abdominal pain Hepatic fibrosis Chance Salazar PA-C Phone: tel: fax: [facility] [place] [address] Phone: tel: fax: Referral ID Status Reason Start Date Expiration Date Visits Re quested Visits Authorized [id number] Closed 10/17/2019 10/16/2020 1 1 Question Answer Reason for Consult Abdominal Pain, Liver Disease Comments Preferred Location: [facility]: Please be aware that coverage of these services is subject to the terms and limitations of your health insurance plan. Call member services at your health plan with any benefit or coverage questions. Any procedures must be performed at a [facility] facility OR coordinated by your clinic's referral office. Please bring the following with you to your appointment: (1) Any X-Rays, CTs or MRIs which have been performed. Contact the facility where they were done to arrange for milk pickup truck driver prior to your scheduled appointment. (2) List of current medications (3) This referral request (4) Any documents/labs given to you for this referral OF ETHICS AND COMPLIANCE Reason for Visit * Reason Onset Date Comments Results 10/09/2019 RUQ ultrasound r esults Encounter Details Date Type Department Care Team (Late st Contact Info) Description 10/09/2019 MyC Medical Advice [address], [address] [place] [address] Chance Salazar PA-C [address] [place] [address] Results (RUQ ultrasound results) Social History Tobacco Use Types Packs/Day Years Used Date Smoking Tobacco: Former Cigarettes Q uit: 04/19/2015 Smokeless Tobacco: Never Comments:hx of vape cigarett e use Alcohol Use Standard Drinks/Week Comments Yes 0 (1 standard drink = 0.6 oz pur e alcohol) rarely Social Connection and Isolation Panel [NHANES] A nswer Date Recorded Frequency of Communication with Friends and Fami ly Twice a week 09/05/2019 Frequency of Social Gatherings with Friends and Family Once a week 09/05/2019 Attends Protestant Services Never 09/05 Active Member of Clubs [...] Answer Date Recorded PHQ-2 Score 0 09/05/2019 [facility] [place] of Occupat ional Health - Occupational Stress [...] AM CDT Legal Sex Male 4:20 AM HEAD OF ETHICS AND COMPLIANCE Gender Identity Male 08/30/2020 11:01 AM CDT Sexual Orientation Straight 08/30/2020 11 :01 AM CDT 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 I'll place the order. [place] OF ETHICS AND COMPLIANCE documented in this encounter Plan of Treatment Scheduled Referrals Name Type Priority Associated Diagnoses Orde r Schedule GASTROENTEROLOGY ADULT REF CONSULT ONLY Referral Routine RUQ abdominal pain Hepatic fibrosis Ordered: 10/17/2019 documented as of this encounter Visit Diagnoses Diagnosis RUQ abdominal pain- Primary Abdominal pain, right upper quadrant Hepatic fibrosis Cirrhosis of liver without mention of alcohol documented in this encounter Additional Health Concerns Infection Onset Date Last Indicated Resolved Time COVID-19 Comment:01/01/2023 Patient tested positive for COVID on 12/31/22 symptom onset 12/30/22 Carrie Tuil, Infection Prevention 12/30/2022 01/01/2023 01/20/2023 11:41 PM HEAD OF ETHICS AND COMPLIANCE Assessment Noted Time PHQ-9 Depression Total Score: 2 09/06/20 19 7:03 AM CDT documented as of this encounter Care Teams Senior Business Process Analyst Relationship Specialty Start Date End Date Yanick Bello MD PCP - General Family Practice 11/27/11 11/16/21 Sin Sam PA-C [address] [place] [address] PCP - General Family Medicine 11/17/21 08/16/22 [place] [address] [place] [address] PCP - General Family Medicine 08/17/22 07/07/24 Sapna Montelongo, [place] Personal Advocate & Liaison (PAL) Family Practice 09/05/19 10/21/20 Yanick Bello MD Assigned PCP 02/15/20 02/09/21 Yanick Bello MD Assigned PCP 09/14/19 01/31/20 Chance Salazar PA-C [address] [place] [id number] Assigned PCP 02/01/20 02/14/20 Rick Yañez MD [address] [place] [id number] Assigned Sleep Provider 09/10/20 Heri Aguilar DPM [address] [facility] [address] [place] [address] Assigned Musculoskeletal Provider 09/10/20 02/01/21 Nilo Rios MD [address] [place] [address] Assigned Surgical Provider 10/03/20 04/01/22 Olivier Haynes, [place] Personal Advocate & Liaison (PAL) Family Practice 10/21/20 03/18/21 Romelia Lemus PA-C [address] [place] [address] Assigned OBGYN Provider 02/02/2110/08 Sin Sam PA-C [address] [place] [address] [id number] Assigned PCP 02/10/21 04/23/21 Mendy Weaver RN Personal Advocate & Liaison (PAL) Family Medicine 03/17/21 04/14/21 Yanick Bello MD Assigned PCP 04/24/21 05/14/21 Sin Sam PA-C [address] [place] [address] [id number] Assigned PCP 05/15/21 07/23/21 Yanick Bello MD Assigned PCP 07/24/21 10/08/21 Sin Sam PA-C [address] [place] [address] [id number] Assigned PCP 10/09/21 08/18/22 Romelia Lemus PA-C [address] [place], [place] [address] Assigned OBGYN Provider 10/09/21 Rola Tenorio MD ORTHOPAEDIC SURGERY [facility] [address] Assigned Musculoskeletal Provider 07/08/22 08/24/23 Viky Pedraza RN Personal Advocate & Liaison (PAL) Nurse 08/18/22 12/21/22 [place] [address] [place] [address] Assigned PCP 08/19/22 08/10/23 Sin Sam PA-C [address] [place] [address] Assigned PCP 08/11/23 09/07/23 Elif Yu MD [address] [facility] [place] [address] Assigned PCP 09/08/23 04/09/24 [place] [address] [place] [address] Assigned PCP 04/10/24 David Galicia MD 6[address] [facility] [address] [place] [address] Cardiovascular Disease 05/16/24 documented as of this encounter
--- OUTSIDE RECORDS SUMMARY | 2024-10-01 09:49 | XMS_ITS | Encounter Summary ---
Author Organization [place] Address [address] [place] [address] Care Team Providers Care Crop Specialist Name Role Phone Yanick Bello MD Primary Care Provider Unavailable Yanick Bello MD Unavailable Unavai Yanick Beth MD Unavailable Unavai lable Praveena Shin MD Unavailable Sapna Montelongo RN Unavailable Unavailable Yanick Bello MD Unavailable Unavai lable Yanick Bello MD Unavailable Unavai lable Chance Salazar PA-C Unavailable [phone] Rick Yañez MD Unavailable Heri Aguilar DPM Unavailable [phone] Nilo Rios MD Unavailable [phone] Olivier Haynes RN Unavailable Unavailable Romelia Lemus-C Unavailable [phone] Sin Sam-C Unavailable [phone] Mendy Weaver RN Unavailable Unavailable Yanick Bello MD Unavailable Unavai labSin Ennis-C Unavailable [phone] Yanick Bello MD Unavailable Unavai labSin [place]nis-C Unavailable +[phone] Romelia Lemus-C Unavailable [phone] Sin Sam PA-C Primary Care Provider Rola Tenorio MD Unavailable Praveena Shin MD Primary Care Provider [phone] Viky Pedraza RN Unavailable Praveena Shin MD Unavailable Sin Sam PA-C Unavailable Elif Yu MD Unavailable Praveena Shin MD Unavailable David Galicia MD Unavailable [phone] Encounter Details Date Type Department Care Team (Late st Contact Info) Description 03/29/2015 MyC Medical Advice Initial Department [facility] Social History Tobacco Use Types Packs/Day Years Used Date Smoking Tobacco: Never Smokeless Tobacco: Never Alcohol Use Standard Drinks/Week Comments No 0 (1 standard drink = 0.6 oz pur e alcohol) Sex and Gender Information Value Date Recorded Sex Assigned at Male 08/30/2020 11:01 AM CDT 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 Gender Identity Male 08/30/2020 11:01 AM CDT [...] Infection Prevention 12/30/2022 01/01/2023 01/20/2023 11:41 PM INVESTOR documented as of this encounter Care Teams Crop Specialist Relationship Specialty Start Date End Date Yanick Bello MD PCP - General Family Practice 11/27/11 11/16/21 Yanick Bello MD PCP - Assigned PCP 08/04/18 01/21/19 Sin Sam PA-C [address] [place] [address] PCP - General Family Medicine 11/17/21 08/16/22 [place] [address] [place] [address] PCP - General Family Medicine 08/17/22 07/07/24 Yanick Bello MD Assigned PCP 08/04/18 07/19/19 [place] [address] [place] [address] Assigned PCP 07/20/19 09/13/19 Sapna Montelongo, [place] Personal Advocate & Liaison (PAL) Family Practice 09/05/19 10/21/20 Yanick Bello MD Assigned PCP 02/15/20 02/09/21 Yanick Bello MD Assigned PCP 09/14/19 01/31/20 Chance Salazar PA-C [address] [place] [address] Assigned PCP 02/01/20 02/14/20 Rick Yañez MD [address] [place] [address] Assigned Sleep Provider 09/10/20 Heri Aguilar DPM [address] [facility] [address] [place] [address] Assigned Musculoskeletal Provider 09/10/20 02/01/21 Nilo Rios MD [address] [place] [phone] Assigned Surgical Provider 10/03/20 04/01/22 Olivier Haynes, [place] Personal Advocate & Liaison (PAL) Family Practice 10/21/20 03/18/21 Romelia Lemus PA-C [address] [place] [address] Assigned OBGYN Provider 02/02/2110/08 Sin Sam PA-C [address] [place] [address] Assigned PCP 02/10/21 04/23/21 Mendy Weaver RN Personal Advocate & Liaison (PAL) Family Medicine 03/17/21 04/14/21 Yanick Bello MD Assigned PCP 04/24/21 05/14/21 Sin Sam PA-C [address] [place] [address] Assigned PCP 05/15/21 07/23/21 Yanick Bello MD Assigned PCP 07/24/21 10/08/21 Sin Sam PA-C [address] [place] [address] Assigned PCP 10/09/21 08/18/22 Romelia Lemus PA-C [address] [place] [address] Assigned OBGYN Provider 10/09/21 Rola Tenorio MD ORTHOPAEDIC SURGERY [address] [address] Assigned Musculoskeletal Provider 07/08/22 08/24/23 Viky Pedraza, [place] Personal Advocate & Liaison (PAL) Nurse 08/18/22 12/21/22 [place] [address] [place] [address] Assigned PCP 08/19/22 08/10/23 Sin Sam PA-C [address] [place] [address] Assigned PCP 08/11/23 09/07/23 Elif Yu MD [address] [facility] [place] [address] Assigned PCP 09/08/23 04/09/24 [place] [address] [place] [address] Assigned PCP 04/10/24 David Galicia MD [address] [facility] [address] [place] [address] Cardiovascular Disease 05/16/24 documented as of this encounter
--- OUTSIDE RECORDS SUMMARY | 2024-10-01 09:49 | XMS_ITS | Encounter Summary ---
Author Organization [facility] Address [address] [place] [address] Care Team Providers Care Insecticide Sprayer Name Role Phone Yanick Bello MD Primary Care Provider Unavailable Yanick Bello MD Unavailable Unavai Yanick Beth MD Unavailable Unavai lable Praveena Shin MD Unavailable Sapna Montelongo RN Unavailable Unavailable Yanick Bello MD Unavailable Unavai lable Yanick Bello MD Unavailable Unavai lable Chance Salazar PA-C Unavailable + [phone] Rick Yañez MD Unavailable Heri Aguilar DPM Unavailable [phone] Nilo Rios MD Unavailable [phone] Olivier Haynes RN Unavailable Unavailable Romelia Lemus-C Unavailable +[phone] Sin Sam-C Unavailable +[phone] Mendy Weaver RN Unavailable Unavailable Yanick Bello MD Unavailable Unavai labSin Ennis-C Unavailable +[phone] Yanick Bello MD Unavailable Unavai labSin Ennis-C Unavailable +[phone] Romelia Lemus-C Unavailable [phone] Sin Sam PA-C Primary Care Provider Rola Tenorio MD Unavailable Praveena Shin MD Primary Care Provider Viky Pedraza RN Unavailable Praveena Shin MD Unavailable Sin Sam PA-C Unavailable Elif Yu MD Unavailable Praveena Shin MD Unavailable David Galicia MD Unavailable [phone] Encounter Details Date Type Department Care Team (Late st Contact Info) Description 01/18/2017 [facility] [address] [address] Ruth Ruelas MD [address] [place] [address] Social History Tobacco Use Types Packs/Day Years Used Date Smoking Tobacco: Former Cigarettes 0 04/19/2015 - 10/19/2016 Smokeless Tobacco: Never Comments:hx of vape cigarett e use Alcohol Use Standard Drinks/Week Comments No 0 (1 standard drink = 0.6 oz pur e alcohol) Sex and Gender Information Value Date Recorded Sex Assigned at Male 08/30/2020 11:01 AM CDT 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 Gender Identity Male 08/30/2020 11:01 AM [...] Infection Prevention 12/30/2022 01/01/2023 01/20/2023 11:41 PM VMWARE ARCHITECT Assessment Noted Time PHQ-9 Depression Total Score: 9 07/23/20 16 7:17 AM CDT documented as of this encounter Care Teams Insecticide Sprayer Relationship Specialty Start Date End Date Yanick Bello MD PCP - General Family Practice 11/27/11 11/16/21 Yanick Bello MD PCP - Assigned PCP 08/04/18 01/21/19 Sin Sam PA-C [address] [place] [address] PCP - General Family Medicine 11/17/21 08/16/22 [place] [address] [place] [address] PCP - General Family Medicine 08/17/22 07/07/24 Yanick Bello MD Assigned PCP 08/04/18 07/19/19 [place] [address] [place] [address] Assigned PCP 07/20/19 09/13/19 Sapna Montelongo, [place] Personal Advocate & Liaison (PAL) Family Practice 09/05/19 10/21/20 Yanick Bello MD Assigned PCP 02/15/20 02/09/21 Yanick Bello MD Assigned PCP 09/14/19 01/31/20 Chance Salazar PA-C [address] [place] [address] Assigned PCP 02/01/20 02/14/20 Rick Yañez MD [address] [place] [address] Assigned Sleep Provider 09/10/20 Hrei Aguilar DPM [address] [facility] [address] [place] [address] Assigned Musculoskeletal Provider 09/10/20 02/01/21 Nilo Rios MD [address] [place] [phone] Assigned Surgical Provider 10/03/20 04/01/22 Olivier Haynes RN Personal Advocate & Liaison (PAL) Family Practice 10/21/20 03/18/21 Romelia Lemus PA-C [address] [place] [address] Assigned OBGYN Provider 02/02/2110/08 Sin Sam PA-C [address] [place] [address] Assigned PCP 02/10/21 04/23/21 Mendy Weaver RN Personal Advocate & Liaison (PAL) Family Medicine 03/17/21 04/14/21 Yanick Bello MD Assigned PCP 04/24/21 05/14/21 Sin Sam PA-C [address] [place] [address] Assigned PCP 05/15/21 07/23/21 Yanick Bello MD Assigned PCP 07/24/21 10/08/21 Sin Sam PA-C [address] [place] [address] Assigned PCP 10/09/21 08/18/22 Romelia Lemus PA-C [address] [address] Assigned OBGYN Provider 10/09/21 Rola Tenorio MD ORTHOPAEDIC SURGERY [facility] [address] [address] Assigned Musculoskeletal Provider 07/08/22 08/24/23 Viky Pedraza RN Personal Advocate & Liaison (PAL) Nurse 08/18/22 12/21/22 [place] [address] [place] [address] Assigned PCP 08/19/22 08/10/23 Sin Sam PA-C [address] [place] [address] Assigned PCP 08/11/23 09/07/23 Elif Yu MD [address] [place], [place] [address] Assigned PCP 09/08/23 04/09/24 [place] [address] [place] [address] Assigned PCP 04/10/24 David Galicia MD [address] [place] [id number] Cardiovascular Disease 05/16/24 documented as of this encounter
--- OUTSIDE RECORDS SUMMARY | 2024-10-01 09:49 | XMS_ITS | Encounter Summary ---
Author Organization [facility] Address [address] [place] [address] Care Team Providers Care Freight Elevator Erector Name Role Phone Yanick Bello MD Primary Care Provider Unavailable Yanick Bello MD Unavailable Praveena Aleman MD Unavailable Sapna Montelongo RN Unavailable Unavailable Yanick Bello MD Unavailable Unavai Yanick Beth MD Unavailable Unavai labChance Thomas PA-C Unavailable + [phone] Rick Yañez MD Unavailable Heri Aguilar DPM Unavailable [phone] Nilo Rios MD Unavailable [phone] Olivier Haynes RN Unavailable Unavailable Romelia Lemus-C Unavailable [phone] Sin Sam-C Unavailable +[phone] Mendy Weaver RN Unavailable Unavailable Yanick Bello MD Unavailable Unavai Sin Durán-C Unavailable +[phone] Yanick Bello MD Unavailable Unavai Sin Durán-C Unavailable +[phone] Romelia Lemus-C Unavailable [phone] Sin SamC Primary Care Provider Rola Tenorio MD Unavailable Praveena Shin MD Primary Care Provider Viky Pedraza RN Unavailable [phone] Praveena Shin MD Unavailable Sin Sam PA-C Unavailable Elif Yu MD Unavailable Praveena Shin MD Unavailable David Galicia MD Unavailable [phone] Encounter Details Date Type Department Care Team (Late st Contact Info) Description 07/14/2019 [facility] Medical Advice [address] [place] [address] David Beckford PsyD [address] [place] [address] Social History Tobacco Use Types Packs/Day Years Used Date Smoking Tobacco: Some Days Cigarettes Started: 04/19/2015; Last attempted to quit: 10/19/2016 Smokeless Tobacco: Never Comments:hx of vape cigarett e use Alcohol Use Standard Drinks/Week Comments Yes 0 (1 standard drink = 0.6 oz pur e alcohol) rarely PHQ-2 Answer Date Recorded PHQ-2 Score 3 07/08/2019 Sex and Gender Information Value Date Recorded Sex Assigned at Male 08/30/2020 11:01 AM CDT 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 Gender Identity Male 08/30/2020 11:01 AM CDT [...] Infection Prevention 12/30/2022 01/01/2023 01/20/2023 11:41 PM IRON PLASTIC BULLET MAKER Assessment Noted Time PHQ-9 Depression Total Score: 11 07/08/ 019 10:45 AM CDT documented as of this encounter Care Teams Freight Elevator Erector Relationship Specialty Start Date End Date Yanick Bello MD PCP - General Family Practice 11/27/11 11/16/21 Sin Sam PA-C [address] [place] [address] PCP - General Family Medicine 11/17/21 08/16/22 [place] [address] [place] [address] PCP - General Family Medicine 08/17/22 07/07/24 Yanick Bello MD Assigned PCP 08/04/18 07/19/19 [place] [address] [place] [address] Assigned PCP 07/20/19 09/13/19 Sapna Montelongo, [place] Personal Advocate & Liaison (PAL) Family Practice 09/05/19 10/21/20 Yanick Bello MD Assigned PCP 02/15/20 02/09/21 Yanick Bello MD Assigned PCP 09/14/19 01/31/20 Chance Salazar [place]-C [address] [facility] [place] [address] Assigned PCP 02/01/20 02/14/20 Rick Yañez MD [address] [place] [address] Assigned Sleep Provider 09/10/20 Heri Aguilar DPM [address] [facility] [address] [place] [address] Assigned Musculoskeletal Provider 09/10/20 02/01/21 Nilo Rios MD [address] [place] [phone] Assigned Surgical Provider 10/03/20 04/01/22 Olivier Haynes RN Personal Advocate & Liaison (PAL) Family Practice 10/21/20 03/18/21 Romelia Lemus PA-C [address] [place] [address] Assigned OBGYN Provider 02/02/2110/08 Sin Sam PA-C [address] [place] [address] Assigned PCP 02/10/21 04/23/21 Mendy Weaver RN Personal Advocate & Liaison (PAL) Family Medicine 03/17/21 04/14/21 Yanick Bello MD Assigned PCP 04/24/21 05/14/21 Sin Sam PA-C [address] [place] [address] Assigned PCP 05/15/21 07/23/21 Yanick Bello MD Assigned PCP 07/24/21 10/08/21 Sin Sam PA-C [address] [place] [address] Assigned PCP 10/09/21 08/18/22 Romelia Lemus PA-C [address] [facility] [address] [address] Assigned OBGYN Provider 10/09/21 Rola Tenorio MD ORTHOPAEDIC SURGERY [address] [place] [address] [id number] Assigned Musculoskeletal Provider 07/08/22 08/24/23 Viky Pedraza RN Personal Advocate & Liaison (PAL) Nurse 08/18/22 12/21/22 [place] [address] [place] [address] Assigned PCP 08/19/22 08/10/23 Sin Sam PA-C [address] [place] [address] Assigned PCP 08/11/23 09/07/23 Elif Yu MD [address] [facility] [address] [facility] [address] Assigned PCP 09/08/23 04/09/24 [place] [address] [place] [address] Assigned PCP 04/10/24 David Galicia MD [address] [place] [id number] Cardiovascular Disease 05/16/24 documented as of this encounter
--- OUTSIDE RECORDS SUMMARY | 2024-10-01 09:49 | XMS_ITS | Encounter Summary ---
Author Organization [facility] Address [address] [place] [address] Care Team Providers Care Warehouse Laborer Name Role Phone Yanick Bello MD Primary Care Provider Unavailable Yanick Bello MD Unavailable Unavai Yanick Beth MD Unavailable Unavai lable Praveena Shin MD Unavailable Sapna Montelongo RN Unavailable Unavailable Yanick Bello MD Unavailable Unavai lable Yanick Bello MD Unavailable Unavai lable Chance Salazar PA-C Unavailable + [phone] Rick Yañez MD Unavailable Heri Aguilar DPM Unavailable [phone] Nilo Rios MD Unavailable [phone] Olivier Haynes RN Unavailable Unavailable Romelia Lemus-C Unavailable [phone] Sin Sam-C Unavailable +[phone] Mendy Weaver RN Unavailable Unavailable Yanick Bello MD Unavailable Unavai labSin Ennis-C Unavailable +[phone] Yanick Bello MD Unavailable Unavai labSin Ennis-C Unavailable +[phone] Romelia Lemus-C Unavailable [phone] Sin Sam PA-C Primary Care Provider Rola Tenorio MD Unavailable Praveena Shin MD Primary Care Provider Viky Pedraza RN Unavailable [phone] Praveena Shin MD Unavailable Sin Sam PA-C Unavailable Elif Yu MD Unavailable [phone] Praveena Shin MD Unavailable David Galicia MD Unavailable [phone] Reason for Visit * Reason Onset Date Comments Referral 03/26/2012 ENT Encounter Details Date Type Department Care Team (Late st Contact Info) Description 03/26/2012 MyC Medical Advice [address] [phone] Yanick Bello MD Referral (ENT) Social History Tobacco Use Types Packs/Day Years Used Date Smoking Tobacco: Never Smokeless Tobacco: Never Alcohol Use Standard Drinks/Week Comments Yes 0 (1 standard drink = 0.6 oz pur e alcohol) 2 drinks per week Sex and Gender Information Value Date Recorded Sex Assigned at Male 08/30/2020 11:01 AM CDT Legal Sex Male 4:20 AM DATA 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 (Julianna in referrals) documented in this encounter Plan of Treatment Not on file documented as of this encounter Visit Diagnoses Not on filedocumented in this encounter Additional Health Concerns Infection Onset Date Last Indicated Resolved Time COVID-19 Comment:01/01/2023 Patient tested positive for COVID on 12/31/22 symptom onset 12/30/22 Carrie Agustin, Infection Prevention 12/30/2022 01/01/2023 01/20/2023 11:41 PM DATA ARCHITECT MANAGER documented as of this encounter Care Teams Warehouse Laborer Relationship Specialty Start Date End Date Yanick Bello MD PCP - General Family Practice 11/27/11 11/16/21 Yanick Bello MD PCP - Assigned PCP 08/04/18 01/21/19 Sin Sam PA-C [address] [place] [address] PCP - General Family Medicine 11/17/21 08/16/22 [place] [address] [place] [address] PCP - General Family Medicine 08/17/22 07/07/24 Yanick Bello MD Assigned PCP 08/04/18 07/19/19 [place] [address] [place] [address] Assigned PCP 07/20/19 09/13/19 Sapna Montelongo, RN Personal Advocate & Liaison (PAL) Family Practice 09/05/19 10/21/20 Yanick Bello MD Assigned PCP 02/15/20 02/09/21 Yanick Bello MD Assigned PCP 09/14/19 01/31/20 Chance Salazar PA-C [address] [facility] [place] [address] Assigned PCP 02/01/20 02/14/20 Rick Yañez MD [address] [place] [address] Assigned Sleep Provider 09/10/20 Heri Aguilar DPM [address] [facility] [address] [place], [place] [address] Assigned Musculoskeletal Provider 09/10/20 02/01/21 Nilo Rios MD [address] [place] [phone] Assigned Surgical Provider 10/03/20 04/01/22 Olivier Haynes RN Personal Advocate & Liaison (PAL) Family Practice 10/21/20 03/18/21 Romelia Lemus PA-C [address] [place] [address] Assigned OBGYN Provider 02/02/2110/08 Sin Sam PA-C [address] [place] [address] Assigned PCP 02/10/21 04/23/21 Mendy Weaver RN Personal Advocate & Liaison (PAL) Family Medicine 03/17/21 04/14/21 Yanick Bello MD Assigned PCP 04/24/21 05/14/21 Sin Sam PA-C [address] [place] [address] Assigned PCP 05/15/21 07/23/21 Yanick Bello MD Assigned PCP 07/24/21 10/08/21 Sin Sam PA-C [address] [place] [address] Assigned PCP 10/09/21 08/18/22 Romelia Lemus PA-C [address] [address] Assigned OBGYN Provider 10/09/21 Rola Tenorio MD ORTHOPAEDIC SURGERY [facility] [address] [address] Assigned Musculoskeletal Provider 07/08/22 08/24/23 Viky Pedraza, [place] Personal Advocate & Liaison (PAL) Nurse 08/18/22 12/21/22 [place] [address] [place] [address] Assigned PCP 08/19/22 08/10/23 Sin Sam PA-C [address] [place] [address] Assigned PCP 08/11/23 09/07/23 Elif Yu MD [address]20 [place] [address] Assigned PCP 09/08/23 04/09/24 [place] [address] [place] [address] Assigned PCP 04/10/24 David Galicia MD [address] [place] [address] Cardiovascular Disease 05/16/24 documented as of this encounter
--- OUTSIDE RECORDS SUMMARY | 2024-10-01 09:49 | XMS_ITS | Encounter Summary ---
Author Organization [facility] Address [address] [place] [address] Care Team Providers Care Guest Services Director Name Role Phone Yanick Bello MD Primary Care Provider Unavailable Yanick Bello MD Unavailable Unavai Yanick Beth MD Unavailable Unavai lable Praveena Shin MD Unavailable Sapna Montelongo RN Unavailable Unavailable Yanick Bello MD Unavailable Unavai lable Yanick Bello MD Unavailable Unavai lable Chance Salazar PA-C Unavailable + [phone] Rick Yañez MD Unavailable Heri Aguilar DPM Unavailable [phone] Nilo Rios MD Unavailable [phone] Olivier Haynes RN Unavailable Unavailable Romelia Lemus-C Unavailable [phone] Sin Sam-C Unavailable +[phone] Mendy Weaver RN Unavailable Unavailable Yanick Bello MD Unavailable Unavai labSin Ennis-C Unavailable +[phone] Yanick Bello MD Unavailable Unavai labSin Ennis-C Unavailable +[phone] Romelia Lemus-C Unavailable [phone] Sin Sam PA-C Primary Care Provider Rola Tenorio MD Unavailable Praveena Shin MD Primary Care Provider Viky Pedraza RN Unavailable Praveena Shin MD Unavailable Sin Sam PA-C Unavailable Elif Yu MD Unavailable Praveena Shin MD Unavailable David Galicia MD Unavailable [phone] Encounter Details Date Type Department Care Team (Late st Contact Info) Description 10/26/2014 MyC Medical Advice Hepatology/Gastroenterol ogy 2nd Floor, Clinic [address] [phone] Yeimy Olivo LPN Social History Tobacco Use Types Packs/Day Years Used Date Smoking Tobacco: Never Smokeless Tobacco: Never Alcohol Use Standard Drinks/Week Comments No 0 (1 standard drink = 0.6 oz pur e alcohol) Sex and Gender Information Value Date Recorded Sex Assigned at Male 08/30/2020 11:01 AM CDT Legal 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 Gender Identity Male 08/30/2020 11:01 AM [...] Infection Prevention 12/30/2022 01/01/2023 01/20/2023 11:41 PM TAMPER OPERATOR documented as of this encounter Care Teams Guest Services Director Relationship Specialty Start Date End Date Yanick Bello MD PCP - General Family Practice 11/27/11 11/16/21 Yanick Bello MD PCP - Assigned PCP 08/04/18 01/21/19 Sin Sam PA-C [address] [place] [address] PCP - General Family Medicine 11/17/21 08/16/22 [place] [address] [place] [address] PCP - General Family Medicine 08/17/22 07/07/24 Yanick Bello MD Assigned PCP 08/04/18 07/19/19 [place] [address] [place] [address] Assigned PCP 07/20/19 09/13/19 Sapna Montelongo, [place] Personal Advocate & Liaison (PAL) Family Practice 09/05/19 10/21/20 Yanick Bello MD Assigned PCP 02/15/20 02/09/21 Yanick Bello MD Assigned PCP 09/14/19 01/31/20 Chance Salazar PA-C [address] [place] [address] Assigned PCP 02/01/20 02/14/20 Rick Yañez MD [address] [place] [address] Assigned Sleep Provider 09/10/20 Heri Aguilar DPM [address] [facility] [address] [place] [address] Assigned Musculoskeletal Provider 09/10/20 02/01/21 iNlo Rios MD [address] [place] [phone] Assigned Surgical Provider 10/03/20 04/01/22 Olivier Haynes, [place] Personal Advocate & Liaison (PAL) Family Practice 10/21/20 03/18/21 Romelia Lemus PA-C [address] [place] [address] Assigned OBGYN Provider 02/02/2110/08 Sin Sam PA-C [address] [place] [address] Assigned PCP 02/10/21 04/23/21 Mendy Weaver RN Personal Advocate & Liaison (PAL) Family Medicine 03/17/21 04/14/21 Yanick Bello MD Assigned PCP 04/24/21 05/14/21 Sin Sam PA-C [address] [place] [address] Assigned PCP 05/15/21 07/23/21 Yanick Bello MD Assigned PCP 07/24/21 10/08/21 Sin Sam PA-C [address] [place] [address] Assigned PCP 10/09/21 08/18/22 Romelia Lemus PA-C [address] [place] [address] Assigned OBGYN Provider 10/09/21 Rola Tenorio MD ORTHOPAEDIC SURGERY [address] [place] [address] 153314 Assigned Musculoskeletal Provider 07/08/22 08/24/23 Viky Pedraza RN Personal Advocate & Liaison (PAL) Nurse 08/18/22 12/21/22 [place] [address] [place] [address] Assigned PCP 08/19/22 08/10/23 Sin Sam PA-C [address] [place] [address] Assigned PCP 08/11/23 09/07/23 Elif Yu MD [address] [place] [address] Assigned PCP 09/08/23 04/09/24 [place] [address] [place], [place] [id number] Assigned PCP 04/10/24 David Galicia MD [address] [place] [address] Cardiovascular Disease 05/16/24 documented as of this encounter
--- OUTSIDE RECORDS SUMMARY | 2024-10-01 09:49 | XMS_ITS | Encounter Summary ---
Author Organization [facility] Address [address] [place] [address] Care Team Providers Care Veterinary Microbiologist Name Role Phone Alex Drake MD Primary Care Provider [phone] Yanick Bello MD Primary Care Provider Unavailable Yanick Bello MD Unavailable Unavai lable Yanick Bello MD Unavailable Unavai lable Praveena Shin MD Unavailable Sapna Montelongo RN Unavailable Unavailable Yanick Bello MD Unavailable Unavai Yanick Beth MD Unavailable Unavai lable Chance Salazar PA-C Unavailable + [phone] Rick Yañez MD Unavailable Heri Aguilar DPM Unavailable [phone] Nilo Rios MD Unavailable [phone] Olivier Haynes RN Unavailable Unavailable Romelia Lemus PA-C Unavailable [phone] Sin Sam-C Unavailable [phone] Mendy Weaver RN Unavailable Unavailable Yanick Bello MD Unavailable Unavai labSin Ennis-C Unavailable [phone] Yanick Bello MD Unavailable Unavai labSin [place]nis-C Unavailable [phone] Romelia Lemus PA-C Unavailable [phone] Sin Sam PA-C Primary Care Provider Rola Tenorio MD Unavailable [phone] Praveena Shin MD Primary Care Provider Viky Pedraza RN Unavailable [phone] Praveena Shin MD Unavailable Sin Sam PA-C Unavailable [phone] Elif Yu MD Unavailable Praveena Shin MD Unavailable David Galicia MD Unavailable [phone] Reason for Visit * Reason Onset Date Comments MyChart Communication 10/19/2009 tailbone/s crotal pain Encounter Details Date Type Department Care Team (Latest Contact Info) Description 10/19/2009 MyC Medical Advice [address] [phone] Alex Drake MD [address] [place] [address] MyChart Communication (tailbone/scrotal pain) Social History Tobacco Use Types Packs/Day Years Used Date Smoking Tobacco: Never Alcohol Use Standard Drinks/Week Comments Yes 0 (1 standard drink = 0.6 oz pur e alcohol) 2 drinks per week Sex and Gender Information Value Date Recorded Sex Assigned at Male 08/30/2020 11:01 AM CDT Legal Sex Male 4:[address] TRAFFIC CONTROLLER Gender Identity Male 08/30/2020 11:01 AM CDT Sexual Orientation Straight 08/30/2020 11 :01 AM CDT documented as of this encounter Miscellaneous Notes * Telephone Encounter - Alex Drake - 10/20/2009 8:48 AM CST He suggests? Order made,. Please facilitate TRAFFIC CONTROLLER * Telephone Encounter - Wendi Sam - 10/19/2009 2:51 PM CST Noelle, please advise mychart message Wendi Sam RN TRAFFIC CONTROLLER documented in this encounter Plan of Treatment Not on file documented as of this encounter Procedures Procedure Name Priority Date/Time Associated Diagnosis Comments HC MRI LUMBAR SPINE W/O CONTRAST Routine 10/21/2009 5:[address] TRAFFIC CONTROLLER FAMILY HX PROSTATIC MALIGNANCY Low back pain documented in this encounter Results * MRI LUMBAR SPINE (10/21/2009 5:[address] TRAFFIC CONTROLLER) Anatomical Region Laterality Modality Other 10/21/2009 5:[address] TRAFFIC CONTROLLER Impressions 10/22/2009 4:[address] TRAFFIC CONTROLLER MRI LUMBAR SPINE WITHOUT CONTRAST ?? Oct 21, 2009 5:51 PM HISTORY: Low back pain with left leg numbness for 2 months. No specific injury. TECHNIQUE: Sagittal T1 and T2 and STIR, axial proton density and T2 images. COMPARISON: None. FINDINGS: Five functional lumbar vertebral segments are assumed. The caudal thecal sac appears intrinsically normal. There is minimal degenerative anterolisthesis of L5 on S1 and alignment in the sagittal plane is otherwise normal. Minimal anterior Schmorl's nodes are seen at L3, L4 and L5. Vertebral body bone marrow signal is otherwise normal. The disc spaces from T11 through L5 all show normal signal intensity and morphology without disc bulge, focal protrusion or central or foraminal stenosis. L5-S1 disc space shows signal loss. There is a tiny peripheral annular fissure posterolaterally on the left. Minimal disc bulge without disc protrusion or central stenosis. Minimal degenerative anterolisthesis related to posterior facet hypertrophic degenerative change, left greater than right. No significant foraminal stenosis bilaterally. IMPRESSION: 1. Early degenerative disc disease and posterior facet degenerative changes with mild grade 1 anterolisthesis at L5-S1. No direct impingement on neural structures at this level. 2. Remainder of lumbar spine is unremarkable. us Alex Drake MD [employer] Edited documented in this encounter Visit Diagnoses Diagnosis Low back pain Lumbago FAMILY HX PROSTATIC MALIGNANCY Family history of malignant neoplasm of prostate documented in this encounter Additional Health Concerns Infection Onset Date Last Indicated Resolved Time COVID-19 Comment:01/01/2023 Patient tested positive for COVID on 12/31/22 symptom onset 12/30/22 Carrie Agustin, Infection Prevention 12/30/2022 01/01/2023 01/20/2023 11:[address] TRAFFIC CONTROLLER documented as of this encounter Care Teams Veterinary Microbiologist Relationship Specialty Start Date End Date Alex Drake MD PCP - General 10/24/05 11/26/11 Yanick Bello MD PCP - General Family Practice 11/27/11 11/16/21 Yanick Bello MD PCP - Assigned PCP 08/04/18 01/21/19 Sin Sam PA-C [address] [place] [address] PCP - General Family Medicine 11/17/21 08/16/22 [place] [address] [place] [address] PCP - General Family Medicine 08/17/22 07/07/24 Yanick Bello MD Assigned PCP 08/04/18 07/19/19 [place] [address] [place] [address] Assigned PCP 07/20/19 09/13/19 Sapna Montelongo, [place] Personal Advocate & Liaison (PAL) Family Practice 09/05/19 10/21/20 Yanick Bello MD Assigned PCP 02/15/20 02/09/21 Yanick Bello MD Assigned PCP 09/14/19 01/31/20 Chance Salazar PA-C [address] [place] [address] Assigned PCP 02/01/20 02/14/20 Rick Yañez MD [address] [place] [address] Assigned Sleep Provider 09/10/20 Heri Aguilar DPM [address] [facility] [address] [place] [address] Assigned Musculoskeletal Provider 09/10/20 02/01/21 Nilo Rios MD [address] [place] [phone] Assigned Surgical Provider 10/03/20 04/01/22 Olivier Haynes, [place] Personal Advocate & Liaison (PAL) Family Practice 10/21/20 03/18/21 Romelia Lemus PA-C [address] [place] [address] Assigned OBGYN Provider 02/02/2110/08 Sin Sam PA-C [address] [place] [id number] Assigned PCP 02/10/21 04/23/21 Mendy Weaver RN Personal Advocate & Liaison (PAL) Family Medicine 03/17/21 04/14/21 Yanick Bello MD Assigned PCP 04/24/21 05/14/21 Sin Sam PA-C [address] [place] [address] Assigned PCP 05/15/21 07/23/21 Yanick Bello MD Assigned PCP 07/24/21 10/08/21 Sin Sam PA-C [address] [place] [address] Assigned PCP 10/09/21 08/18/22 Romelia Lemus PA-C [address] [facility] [address] [address] Assigned OBGYN Provider 10/09/21 Rola Tenorio MD ORTHOPAEDIC SURGERY [address] [place] [address] Assigned Musculoskeletal Provider 07/08/22 08/24/23 Viky Pedraza, [place] Personal Advocate & Liaison (PAL) Nurse 08/18/22 12/21/22 [place] [address] [place] [address] Assigned PCP 08/19/22 08/10/23 Sin Sam PA-C [address] [place] [address] Assigned PCP 08/11/23 09/07/23 Elif Yu MD [address] [place] [address] Assigned PCP 09/08/23 04/09/24 [place] [address] [facility] [place] [address] Assigned PCP 04/10/24 David Galicia MD [address] [facility] [address] [place] [address] Cardiovascular Disease 05/16/24 documented as of this encounter
--- OUTSIDE RECORDS SUMMARY | 2024-10-01 09:49 | XMS_ITS | Encounter Summary ---
Author Organization [facility] Address [address] [place] [address] Care Team Providers Care Rn Rehab Name Role Phone Yanick Bello MD Primary Care Provider Unavailable Yanick Bello MD Unavailable Praveena Aleman MD Unavailable Sapna Montelongo RN Unavailable Unavailable Yanick Bello MD Unavailable Unavai Yanick Beth MD Unavailable Unavai labChance Thomas PA-C Unavailable [phone] Rick Yañez MD Unavailable Heri gAuilar DPM Unavailable [phone] Nilo Rios MD Unavailable [phone] Olivier Haynes RN Unavailable Unavailable Romelia Lemus-C Unavailable [phone] Sin Sam-C Unavailable [phone] Mendy Weaver RN Unavailable Unavailable Yanick Bello MD Unavailable Unavai Sin Durán-C Unavailable [phone] Yanick Bello MD Unavailable Unavai Sin Durán-C Unavailable [phone] Romelia Lemus-C Unavailable [phone] Sin SamC Primary Care Provider Rola Tenorio MD Unavailable Praveena Shin MD Primary Care Provider Viky Pedraza RN Unavailable [phone] Praveena Shin MD Unavailable Sin Sam PA-C Unavailable Elif Yu MD Unavailable [phone] Praveena Shin MD Unavailable David Galicia MD Unavailable [phone] Reason for Visit * Reason Comments Medication Refill zolpidem Encounter Details Date Type Department Care Team (Late st Contact Info) Description 07/10/[address] [phone] Yanick Bello MD Medication Refill (zolpidem) Social History Tobacco Use Types Packs/Day Years [...] AM CDT Legal Sex Male 4:20 AM SCOUT Gender Identity Male 08/30/2020 11:01 AM CDT Sexual Orientation Straight 08/30/2020 11 :01 AM CDT 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 zolpidem (AMBIEN) 10 MG tablet [Pharmacy Med Name: ZOLPIDEM TARTRATE 10 MG TABLET] 30 tablet 0 Sig: TAKE 1/2-1 TABLET BY MOUTH AT BEDTIME NEEDED FOR SLEEP There is no refill protocol information for this order Last Written Prescription Date: 06/10/19 Last Fill Quantity: 30 tablet, # refills: 0 Last Office Visit: 01/29/2019 (Farzaneh Bello) Future Office visit: Next 5 appointments (look out 90 days) Jul 16, 2019 4:00 PM CDT Todd Steven with Chance Salazar PA-C [facility] [address] [place] [phone] Routing refill request to provider for review/approval because: Drug not on the G, P or Health refill protocol or controlled substance documented in this encounter Plan of Treatment Not on file documented as of this encounter Visit Diagnoses Diagnosis Sleep disorder Sleep disturbance, unspecified documented in this encounter Additional Health Concerns Infection Onset Date Last Indicated Resolved Time COVID-19 Comment:01/01/2023 Patient tested positive for COVID on 12/31/22 symptom onset 12/30/22 Carrie Agustin, Infection Prevention 12/30/2022 01/01/2023 01/20/2023 11:41 PM SCOUT Assessment Noted Time PHQ-9 Depression Total Score: 11 019 10:45 AM CDT documented as of this encounter Care Teams Rn Rehab Relationship Specialty Start Date End Date Yanick Bello MD PCP - General Family Practice 11/27/11 11/16/21 Sin Sam PA-C [address] [place] [address] PCP - General Family Medicine 11/17/21 08/16/22 [place] [address] [place] [address] PCP - General Family Medicine 08/17/22 07/07/24 Yanick Bello MD Assigned PCP 08/04/18 07/19/19 [place] [address] [place] [address] Assigned PCP 07/20/19 09/13/19 Sapna Montelongo, [place] Personal Advocate & Liaison (PAL) Family Practice 09/05/19 10/21/20 Yanick Bello MD Assigned PCP 02/15/20 02/09/21 Yanick Bello MD Assigned PCP 09/14/19 01/31/20 Chance Salazar PA-C [address] [place] [address] Assigned PCP 02/01/20 02/14/20 Rick Yañez MD [address] [place] [address] Assigned Sleep Provider 09/10/20 Heri Aguilar DPM [address] [facility] [address] [place], [place] [address] Assigned Musculoskeletal Provider 09/10/20 02/01/21 Nilo Rios MD [address] [place] [phone] Assigned Surgical Provider 10/03/20 04/01/22 Olivier Haynes, [place] Personal Advocate & Liaison (PAL) Family Practice 10/21/20 03/18/21 Romelia Lemus PA-C [address] [place] [address] Assigned OBGYN Provider 02/02/2110/08 Sin Sam PA-C [address] [place] [address] Assigned PCP 02/10/21 04/23/21 Mendy Weaver RN Personal Advocate & Liaison (PAL) Family Medicine 03/17/21 04/14/21 Yanick Bello MD Assigned PCP 04/24/21 05/14/21 Sin Sam PA-C [address] [place] [address] Assigned PCP 05/15/21 07/23/21 Yanick Bello MD Assigned PCP 07/24/21 10/08/21 Sin Sam PA-C [address] [place] [address] Assigned PCP 10/09/21 08/18/22 Romelia Lemus PA-C [address] [facility] [facility] [address] [place] [address] Assigned OBGYN Provider 10/09/21 Rola Tenorio MD ORTHOPAEDIC SURGERY [facility] [address] [id number] Assigned Musculoskeletal Provider 07/08/22 08/24/23 Viky Pedraza RN Personal Advocate & Liaison (PAL) Nurse 08/18/22 12/21/22 [place] [address] [place] [address] Assigned PCP 08/19/22 08/10/23 Sin Sam PA-C [address] [place] [address] Assigned PCP 08/11/23 09/07/23 Elif Yu MD [address] [place] [address] Assigned PCP 09/08/23 04/09/24 [place] [address] [place] [address] Assigned PCP 04/10/24 David Galicia MD [address] [place] [address] Cardiovascular Disease 05/16/24 documented as of this encounter
== END 2024-10-01 09:43 | disposition home or self-care (01) ==
PROVIDERS: PCP Physician Assistant Medical; Visit Provider Internal Medicine Cardiovascular Disease
DX: I10 Essential (primary) hypertension (principal)
CPT/HCPCS: 93306

== ENCOUNTER 2025-07-15 13:41 | Outpatient (CLI) | payer MEDICARE, SELFPAY | END 2025-07-15 13:42 | disposition home or self-care (01) | LOC: NFLDREF 07-17 13:46 | PROVIDERS: PCP Physician Assistant Medical; Referring Provider Physician Assistant Medical; Visit Provider Family Medicine | DX: Z00.00 Encounter for general adult medical examination without abnormal findings (principal); I49.3 Ventricular premature depolarization; K76.0 Fatty (change of) liver, not elsewhere classified; I10 Essential (primary) hypertension | CPT/HCPCS: 80053 ==

== ENCOUNTER 2025-08-19 10:59 | Outpatient (CLI) | payer MEDICARE, SELFPAY ==
--- NOTE | 2025-09-08 12:33 | W.PM.SLEEP ---
Sleep Study Details Details Interpreting Provider: Ruth Date of Sleep Study: 08/19/25 Sleep Study Details: STUDY TYPE:? Home unattended ? BMI:? 30.68 ORDERING PROVIDER:? Ruth INDICATION:? Concern for sleep apnea ? SLEEP SUMMARY:? 483 minutes sleep time RESPIRATORY SUMMARY:? AHI 5.5 for rule 1A, 2.1 per CMS guideline Low oxygen 90 Snoring 95% PERIODIC LIMB MOVEMENTS OF SLEEP:? Not recorded CARDIAC:? Range 53-101, mean 64.9 beats per minute IMPRESSION:? Mild obstructive sleep apnea per rule 1A, normal study per CMS guideline RECOMMENDATION: If sleep apnea strongly suspected could consider repeating study with sedative hypnotic agent or an in-lab study.
== END 2025-08-19 11:00 | disposition home or self-care (01) ==
LOC: SLEEP 11:00
PROVIDERS: PCP Physician Assistant Medical; Visit Provider Otolaryngology
DX: G47.33 Obstructive sleep apnea (adult) (pediatric) (principal)
CPT/HCPCS: 95806

== ENCOUNTER 2025-10-29 08:55 | Outpatient (CLI) | payer MEDICARE, SELFPAY ==
--- NOTE | 2025-10-29 09:15 | CRLHL7_ITS ---
For Patients: As a result of the Century Cures Act, medical imaging exams and procedure reports are released immediately into your electronic medical record. You may view this report before your referring provider. If you have questions, please contact your health care provider. Indication: Left upper extremity pain. Technique: Multisequence multiplanar MRI of the cervical spine without the use of intravenous contrast. Comparison: Correlated with cervical spine radiographs dated 09/09/2025. Findings: Normal vertebral alignment, stature, and intrinsic marrow signal intensity. The cervical spinal cord is normal in signal intensity. The prevertebral soft tissues are unremarkable. C2-C3: Mild facet joint arthrosis. No significant spinal canal or neural foraminal stenosis. C3-C4: Small posterior disc osteophyte complex and infolding of the ligamentum flavum contributing to mild spinal canal stenosis. Moderate bilateral neural foraminal narrowing associated with uncovertebral and facet joint arthrosis. C4-C5: Small posterior disc osteophyte complex. No significant spinal canal stenosis. Moderate right and mild left neural foraminal narrowing associated with uncovertebral and facet joint arthrosis. C5-C6: Posterior disc osteophyte complex with small superimposed left paracentral disc protrusion. Mild resultant spinal canal stenosis. Mild right and moderate left neural foraminal narrowing associated with uncovertebral arthrosis. C6-C7: No significant spinal canal stenosis or right neural foraminal narrowing. Mild-moderate left neural foraminal narrowing associated with uncovertebral hypertrophy. C7-T1: Mild facet joint arthrosis. No significant spinal canal or neural foraminal stenosis. Impression: 1. At C3-C4, mild spinal canal stenosis and moderate bilateral neural foraminal narrowing. 2. At C4-C5, moderate right neural foraminal narrowing. 3. At C5-C6, small left paracentral disc protrusion, mild resultant spinal canal stenosis, and moderate left neural foraminal narrowing. 4. At C6-C7, mild-moderate left neural foraminal narrowing. Dictated by Miko Fraga MD @ 10/30/2025 9:56:42 AM (Electronically Signed)
== END 2025-10-29 08:56 | disposition home or self-care (01) ==
PROVIDERS: PCP Physician Assistant Medical; Visit Provider Orthopaedic Surgery
DX: M79.642 Pain in left hand (principal); M47.812 Spondylosis without myelopathy or radiculopathy, cervical region; M50.222 Other cervical disc displacement at C5-C6 level; M48.02 Spinal stenosis, cervical region
CPT/HCPCS: 72141